=== PATIENT | male | born 1945 | race Caucasian/White ===

== ENCOUNTER → 2018-01-02 08:52 | Outpatient (CLI) | payer OTHER, MEDICARE, SELFPAY ==
[2018-01-02 12:32] LABS: Color, Urine Yellow (Yellow); Glucose, Dipstick Normal (Normal); Ketone-Dipstick Negative (Negative); Leukocyte Esterase-Dipstick Negative /ul (Negative); Nitrite-Dipstick Negative (Negative); Occult Blood-Urine Negative /ul (Negative); Protein-Dipstick Negative (Negative); Urine Bilirubin Dipstick Negative (Negative); Urine Clarity Clear (Clear); Urine Urobilinogen Normal (Normal)
[2018-01-02 12:33] LABS: Absolute Lymphocyte Count 1.25 X10^3/ul (0.83-4.51); Absolute Neutrophil Count 2.3 X10^3/uL (2.0-7.7); Basophil# 0.02 X10^3/uL; Basophil% 0.5 % (0-1); Eosinophil# 0.05 X10^3/uL; Eosinophils% 1.2 % (0-5); Hemoglobin 13.4 g/dl (13.0-16.5); Lymphocyte # 1.25 X10^3/ul; Lymphocyte % 30.6 % (19-41); Mean Corp Hgb Conc 30.5 g/gl (32-36); Mean Corpuscular Hgb 27.5 pg (27.0-32.0); Mean Corpuscular Volume 90.2 fL (80-94); Mean Platelet Vol. 10.8 fl (6.2-12.0); Monocyte# 0.45 X10^3/uL; Neutrophil # 2.31 X10^3/uL (2.7-7.7); Neutrophil % 56.7 % (47-70); Platelet Count 289 K/mm3 (150-450); RBC Distribution Width CV 12.7 % (11.6-14.6); RBC Distribution Width SD 41.2 fl (35.1-43.9); Red Blood Count 4.88 M/mm3 (4.6-6.2); White Blood Count 4.1 K/mm3 (4.4-11.0)
[2018-01-02 12:50] LABS: Vitamin D,25 Hydroxy 33.2 ng/mL (29.95-100.01)
[2018-01-02 12:56] LABS: COTININE Drug Screen Negative (<200 ng/mL)
[2018-01-02 13:09] LABS: ALB/GLOB Ratio 0.7 RATIO (0.9-2.4); AST(SGOT) 16 U/L (15-37); Alanine Aminotransfer ALT/SGPT 18 U/L (16-61); Albumin, Serum 3.2 g/dL (3.2-5.0); Alkaline Phosphatase 103 U/L (45-117); Anion Gap 7 (5-15); BUN 16 mg/dL (7-18); BUN/Creat Ratio 14.5 RATIO (10-20); Bilirubin, Direct 0.09 mg/dL (0.00-0.30); Calcium,Total 8.7 mg/dL (8.5-10.1); Chloride 103 mmol/L (98-107); Cholesterol 172 mg/dL (200); EST Glomerular Filtration Rate 70 mL/min (>60); Est Glom Filt Rate - Afr Amer 84 mL/min (>60); Globulin 4.9 g/dL (2.2-4.2); Glucose 83 mg/dL (74-106); High Density Lipoprotein 45 mg/dL; LDH 140 U/L (87-241); Potassium 4.3 mmol/L (3.5-5.1); Protein, Total 8.1 g/dL (6.4-8.2); Sodium Level 140 mmol/L (136-145); Triglycerides 74 mg/dL; Uric Acid 4.7 mg/dL (3.5-7.2); Very Low Density Lipoprotein 15 mg/dL (5-40)
[2018-01-05 16:09] LABS: PROEL- A/G Ratio 0.8 (0.7-1.7); PROEL- Albumin 3.4 g/dL (2.9-4.4); PROEL- Alpha-1 Globulin 0.2 g/dL (0.0-0.4); PROEL- Alpha-2 Globulin 0.7 g/dL (0.4-1.0); PROEL- Gamma Globulin 2.2 g/dL (0.4-1.8); PROEL- Globulin, Total 4.1 g/dL (2.2-3.9); PROEL- TOTAL PROTEIN 7.5 g/dL (6.0-8.5); PROELU- Albumin, Urine 16.3 % (.); PROELU- Alpha-1-Globulin,Ur 8.3 % (.); PROELU- Alpha-2-Globulin,Ur 21.5 % (.); PROELU- Gamma Globulin, Ur 23.8 % (.); Total Protein, Ur 11.6 mg/dL (Not Estab.)
== END ==
PROVIDERS: Family Provider Family Medicine; PCP Family Medicine; Visit Provider Family Medicine
DX: Z00.00 Encounter for general adult medical examination without abnormal findings (principal); Z12.5 Encounter for screening for malignant neoplasm of prostate; D89.2 Hypergammaglobulinemia, unspecified; E55.9 Vitamin D deficiency, unspecified
CPT/HCPCS: 80307; 82306; 82784; 84165; 84166; 86334

== ENCOUNTER → 2018-02-16 09:12 | Outpatient (CLI) | payer OTHER, MEDICARE, SELFPAY ==
[2018-02-16 09:28] LABS: Absolute Lymphocyte Count 1.48 X10^3/ul (0.83-4.51); Absolute Neutrophil Count 2.3 X10^3/uL (2.0-7.7); Basophil# 0.01 X10^3/uL; Basophil% 0.2 % (0-1); Eosinophil# 0.07 X10^3/uL; Eosinophils% 1.6 % (0-5); Hematocrit 44.2 % (40-54); Hemoglobin 13.9 g/dl (13.0-16.5); Lymphocyte # 1.48 X10^3/ul (4.0); Lymphocyte % 34.2 % (19-41); Mean Corp Hgb Conc 31.4 g/gl (32-36); Mean Corpuscular Hgb 27.6 pg (27.0-32.0); Mean Corpuscular Volume 87.7 fL (80-94); Mean Platelet Vol. 10.3 fl (6.2-12.0); Monocyte# 0.51 X10^3/uL; Monocyte% 11.8 % (0-10); Neutrophil # 2.25 X10^3/uL (2.7-7.7); POSITIVE COUNT NO; POSITIVE DIFFERENTIAL NO; POSITIVE MORPHOLOGY NO; Platelet Count 184 K/mm3 (150-450); RBC Distribution Width CV 13.7 % (11.6-14.6); RBC Distribution Width SD 43.6 fl (35.1-43.9); Red Blood Count 5.04 M/mm3 (4.6-6.2); White Blood Count 4.3 K/mm3 (4.4-11.0)
[2018-02-16 09:37] LABS: Prothrombin Time (Protime)PT. 13.5 SECONDS (11.7-14.9)
[2018-02-16 10:01] LABS: ALB/GLOB Ratio 0.8 RATIO (0.9-2.4); AST(SGOT) 13 U/L (15-37); Alanine Aminotransfer ALT/SGPT 14 U/L (16-61); Albumin, Serum 3.6 g/dL (3.2-5.0); Alkaline Phosphatase 84 U/L (45-117); Anion Gap 2 (5-15); BUN 15 mg/dL (7-18); BUN/Creat Ratio 12.4 RATIO (10-20); Chloride 106 mmol/L (98-107); Creatinine, Serum 1.21 mg/dL (0.70-1.30); EST Glomerular Filtration Rate 62 mL/min (>60); Est Glom Filt Rate - Afr Amer 75 mL/min (>60); Globulin 4.7 g/dL (2.2-4.2); Glucose 92 mg/dL (74-106); LDH 118 U/L (87-241); Potassium 4.7 mmol/L (3.5-5.1); Protein, Total 8.3 g/dL (6.4-8.2); Sodium Level 139 mmol/L (136-145)
[2018-02-18 06:08] LABS: HEPATITIS B SURFACE AG Negative (Negative); Hepatitis B Core AB IgM Negative (Negative); Hepatitis B Core Ab Total Negative (Negative); Hepatitis Be Ab Negative (Negative); Hepatitis Be Ag Negative (Negative); Hepatitis C Ab <0.1 s/co ratio (0.0-0.9)
[2018-02-18 11:28] LABS: Hep B Surface Antibodies Non Reactive (.); Viscosity, Serum 2.5 rel.saline (1.6-1.9)
== END ==
PROVIDERS: Family Provider Family Medicine; PCP Family Medicine; Visit Provider Internal Medicine Hematology & Oncology
DX: C88.0 Waldenstrom macroglobulinemia (principal)
CPT/HCPCS: 36415; 80053; 83615; 85025; 85610; 85810; 86704; 86705; 86706; 86707; 86803; 87340; 87350

== ENCOUNTER → 2018-02-20 09:26 | Outpatient (CLI) | payer OTHER, MEDICARE, SELFPAY ==
--- NOTE | 2018-02-20 | BMB_PTH ---
PATIENT: LARISA GE LOC: CT U#:[id number] AGE/SX: 80/M ROOM: RE02/20/[address]: Dr. Kayla Torrez MD : 1945 BED: DIS: SPEC #: [id number] RECD: 02/20/18 13:59 STATUS: DAMARIS RENicola #: [id number] LOCO: 02/20/18 00:[address]: Kayla Torrez DEPT: BONE MARROW RECD BY: Jeramie Barba ENTERED: 02/20/18 13:59 SP TYPE: BMB OTHR DR: Dr. Baldemar Dotson DO Tissues: A - Bone marrow, NOS B - Bone marrow, NOS C - Bone marrow, NOS Procedures: PERIPH Decalcification bone/plaque Bone Marrow Aspiration Special Stain Group II PAS Stain (control) Retic (control) Iron Stain (control) [place] Stain (control) Bone Marrow Core Biopsy Iron Stain Bone Marrow HEADER OPERATION: Bone marrow biopsy and aspiration PRE-OP DIAGNOSIS: IGM-K, MGUS, ? Waldenstr?m?s lymphoma TISSUE SUBMITTED: A - Core, B - Clot, C - Smears, and send outs (flow and cytogenetics) BONE MARROW DIAGNOSIS Right hip bone marrow core, clot and aspirate smears: Consistent with plasma cell dyscrasia with kappa monoclonality. Flow cytometry study from [facility] shows no significant diagnostic immunophenotypic abnormality. Complete report is viewable in patient?s EMR. See bone marrow study and comment. SJ:oxana 02/26/18 COMMENT Immunohistochemistry ([id number]) supports the above diagnosis. Plasma cell population comprise about 5-10% of total nucleated cell population. The bone marrow core and aspirate smears are limited in evaluation due to the presence of limited amount of bone marrow. Aspirate smears consist of only peripheral blood without any hematopoietic cells. Correlation with clinical, laboratory findings and appropriate follow up are necessary. This case has been review in consultation with Dr. Perry who concurs with the above diagnosis. BONE MARROW STUDY Slides are reviewed. CBC DATE: 02/20/18 WBC 4.3K; RBC 4.98; HGB 14.1; HCT 43.3; MCV 86.0; RDW 13.6; PLTS 187,000 SEGS 53.9%; LYMPHS 30.8%; MONOS 13.4%; EOS 1.4%; BASOS 0.5% PERIPHERAL SMEAR: Submitted. RBC: Normocytic and normochromic. WBC: Unremarkable. The WBC count is compatible to as reported above. PLTS: Adequate. BONE MARROW ASPIRATE DIFFERENTIAL: Not performed ASPIRATE FINDINGS: Site: Not specified Aspicular, acellular Comment: The smears predominantly consist of peripheral blood. Hematopoietic cells are not identified. CORE BIOPSY FINDINGS: Site: Not specified Adequacy: Limited Cellularity: 50% M/E ratio: Within normal limits. Megakaryocytes: Present and adequate in number. Bony trabeculae: Unremarkable. Granulomas: Absent. Lymphoid aggregate: Absent. Atypical infiltrate: present. Comment: Most of the specimen consists of cortical bone. A minute fragment of bone with hematopoietic marrow is noted. Immunohistochemistry ([id number]) shows mild increase of plasma cells. Plasma cell population comprise about 5-10% of total nucleated cell population. ASPIRATE CLOT FINDINGS: Site: Not specified Marrow particles: A few Cellularity: 50% M/E ratio: Within normal limits. Megakaryocytes: Present and adequate in number. Granulomas: Absent. Lymphoid aggregates: Absent. Atypical infiltrates: present. Comment: Most of the specimen consists of blood clots with a few fragments showing marrow particle. Immunohistochemistry ([id number]) shows mild increase of plasma cells with kappa monoclonality consistent with plasma cell dyscrasia. Plasma cell population comprise about 5-10% of total nucleated cell population. SPECIAL STAINS WITH MATCHED CONTROLS: Iron: Absent in core biopsy and clot section. The aspirate smears are insufficient for evaluation as they contain entirety of peripheral blood. Reticulin: No significant increase of reticulin fibers is noted. PAS: Highlights myeloid cells and megakaryocytes. BONE MARROW GROSS A - Received is a container labeled with the patient's name and designated bone marrow biopsy. The specimen consists of an elongated piece of camp bone measuring 0.3 cm in length and 0.1 cm in diameter. The specimen is totally submitted in one cassette after decalcification. B - Received labeled with the patient's name and not designated is a specimen that consists of two syringes of approximately 8 cc of bloody fluid that on filtration yields multiple minute fragments of blood clots measuring in aggregate 1.5 x 1.5 x 0.1 cm. The specimen is totally submitted in one cassette. C - Also received are 25 unstained and 1 peripheral stained slides. The unstained slides are submitted for appropriate staining. Also received is one green top tube which is sent to our reference lab for flow and cytogenetics. / SJ:rg 02/20/18 TC:5 CPT: 96123, 05446, 14387 x2, 48971 x3, 40934 ADDENDUM ADDENDUM ADDENDUM ADDENDUM ADDENDUM ADDENDUM ADDENDUM ADDENDUM 03/04/2018 10:07 ADDENDUM 03/04/2018 10:07 ADDENDUM 03/04/2018 10:07 ADDENDUM 03/04/2018 10:07 ADDENDUM 03/04/2018 10:07 CYTOGENETICS REPORT FROM [facility] CYTOGENETIC RESULT: 47,XY,+12[3]/46,XY[17] INTERPRETATION: CLL/SLL related clone detected Please see complete report in e-chart or EMR for further details
--- NOTE | 2018-02-20 | IMM_PTH ---
PATIENT: LARISA GE LOC: CT U#:[id number] AGE/SX: 80/M ROOM: RE02/20/[address]: Dr. Kayla Torrez MD : 1945 BED: DIS: SPEC #: [id number] RECD: 02/23/18 11:25 STATUS: DAMARIS REQ #: [id number] LOCO: 02/20/18 00:[address]: Kayla Torrez DEPT: IMMUNOHISTOCHEMISTRY RECD BY: Pratima Calixto ENTERED: 02/23/18 11:27 SP TYPE: IMMUNO OTHR DR: Dr. Baldemar Dotson DO Tissues: A - Bone marrow of iliac crest B - Bone marrow of iliac crest Procedures: BCL-6 (add) CD10 (add) CD138 (add) CD20 (add) CD23 (add) CD3 (add) CD5 (add) CD79A (add) CYCLIN (add) KAPPA (add) LAMBDA (add) CD45 (initial) PHYSICIAN & [address] [address] SPECIMEN INFORMATION: Tissue Source: A ? Bone marrow biopsy, core, B ? Bone marrow biopsy, clot Clinical Info: IGM-K, MGUS, ? Waldenstr?m?s lymphoma Specimen Number: [id number] A & B CPT code: 14902 x2, 66715 x14 METHODOLOGY: Deparaffinized sections of prefer/formalin-fixed tissue or PAP/DQ stained slides are incubated with monoclonal/polyclonal antibodies/oligonucleotide probes. Localization is made via biotin free immunoperoxidase method. Appropriate controls are performed and reacted as expected. Results on target cell population are indicated in the following table: RESULTS: ANTIBODY / CLONE RESULT Block A CD45 (RP2/18) positive CD138 (B-A38) positive [place] (polyclonal) negative Lambda (polyclonal) negative Block B CD45 (RP2/18) positive CD138 (B-A38) positive [place] (polyclonal) positive Lambda (polyclonal) negative CD3 (PS1) positive CD5 (SP10) positive CD20 (L26) positive CD79a (11E3) positive CD23 (1B12) negative [place] D1/BCL-1 (SP4) negative CD10 (56C6) negative BCL-6 (VY567C/A8) negative These tests were developed and their performance characteristics determined by [facility]. They may not have been cleared or approved by the U.S. Food and Drug Administration. The FDA has determined that such clearance or approval is not necessary. INTERPRETATION: A. Bone marrow biopsy, core: Mild increase of plasma cells is noted. B. Bone marrow biopsy, clot: Mild increase of plasma cells noted with kappa monoclonality. Lymphocytes are polytypic in nature. SJ:oxana 02/26/18 Case has been reviewed in consultation with Dr. Perry who concurs with the above diagnosis. IDC:AM
--- NOTE | 2018-02-20 09:29 | CT_ITS ---
PROCEDURE: CT-GUIDED CORE BONE BIOPSY OF THE LEFT ILIAC BONE WITH BONE MARROW ASPIRATION. Individualized dose optimization techniques were used for this CT. INDICATION: Male, 72 years old. Low blood count. CT guidance RADIATION DOSAGE (If Supplied By Facility): CTDIvol = ( ) mGy, DLP = ( ) mGycm CONSENT: The risks, benefits and alternatives to the procedure were explained to the patient, and the patient agreed to the procedure and signed the consent. SEDATION: Intermittent the intravenous and demonstration of Versed and fentanyl by nursing staff under continuous cardiopulmonary monitoring. Sedation less than approximately 30 minutes STERILE BARRIER TECHNIQUE: The following sterile barrier precautions were used during the procedure: hand hygiene; use of 2% chlorhexidine aseptic; use of a cap, mask, sterile gown, sterile gloves, sterile full body drape, and a large sterile sheet. PROCEDURE/TECHNIQUE: The risks, benefits, and alternatives to the procedure were explained to patient, and the patient agreed to the procedure and signed a consent form for the procedure. A timeout was performed to confirm the patient's identity, the type of procedure, to be performed and the site of entry. Patient was positioned right lateral decubitus on the CT scan table. Under CT guidance using sterile technique and after infiltration of the skin and subcutaneous soft tissues with 40 mL of lidocaine 1% a 10-gauge bone introducer device was advanced to the posterior lateral cortex of the of the iliac bone, a bone window is created then an 11-gauge core biopsy was introduced 2 core samples were obtained under CT guidance. An aspiration of the bone marrow was performed using 5 cc and 10 cc syringes. The samples were handled by lab personnel. FINDINGS: Successful CT-guided core biopsy of the iliac bone with bone marrow aspiration. CT/Biopsy/Inj or Needle Placement IMPRESSION: Successful CT-guided core biopsy of the iliac bone with bone marrow aspiration. Electronically Signed: Dejan Carlisle MD at 11:56 EDT Tel , Service support ,
[2018-02-20 09:39] VITALS: BP 165/74; PULSE 65; RESP 16; TEMP 37.2; O2SAT 98; BMI 61.7
[2018-02-20 10:18] LABS: Absolute Lymphocyte Count 1.31 X10^3/ul (0.83-4.51); Absolute Neutrophil Count 2.3 X10^3/uL (2.0-7.7); Basophil# 0.02 X10^3/uL; Basophil% 0.5 % (0-1); Eosinophil# 0.06 X10^3/uL; Eosinophils% 1.4 % (0-5); Hematocrit 43.3 % (40-54); Hemoglobin 14.1 g/dl (13.0-16.5); Lymphocyte # 1.31 X10^3/ul (4.0); Lymphocyte % 30.8 % (19-41); Mean Corp Hgb Conc 32.6 g/gl (32-36); Mean Corpuscular Hgb 28.3 pg (27.0-32.0); Mean Corpuscular Volume 86.9 fL (80-94); Mean Platelet Vol. 10.6 fl (6.2-12.0); Monocyte# 0.57 X10^3/uL; Monocyte% 13.4 % (0-10); Neutrophil # 2.29 X10^3/uL (2.7-7.7); Neutrophil % 53.9 % (47-70); Platelet Count 187 K/mm3 (150-450); RBC Distribution Width CV 13.6 % (11.6-14.6); RBC Distribution Width SD 43.3 fl (35.1-43.9); Red Blood Count 4.98 M/mm3 (4.6-6.2); White Blood Count 4.3 K/mm3 (4.4-11.0)
[2018-02-20 10:20] LABS: POSITIVE COUNT NO; POSITIVE DIFFERENTIAL NO; POSITIVE MORPHOLOGY NO
[2018-02-20 11:33] VITALS: BP 168/84; PULSE 68; RESP 14; O2SAT 96
== END ==
PROVIDERS: Family Provider Family Medicine; PCP Family Medicine; Visit Provider Internal Medicine Hematology & Oncology
DX: C88.0 Waldenstrom macroglobulinemia (principal)
CPT/HCPCS: 38221; 36415; 77012; 85025; 88305; 88311; 88313; 88341; 88342

== ENCOUNTER → 2018-07-31 09:59 | Outpatient (CLI) | payer OTHER, MEDICARE, SELFPAY ==
[2018-07-31 16:02] LABS: PSA,Total - Annual Screen 0.91 ng/mL (0.00-4.00)
== END ==
PROVIDERS: Family Provider Family Medicine; PCP Family Medicine; Visit Provider Family Medicine
DX: Z12.5 Encounter for screening for malignant neoplasm of prostate (principal)
CPT/HCPCS: 36415; 84153; G0103

== ENCOUNTER → 2019-04-28 15:11 | Outpatient (CLI) | payer OTHER, MEDICARE, SELFPAY ==
[2019-03-01 11:05] VITALS: BMI 31.0
--- NOTE | 2019-04-28 16:07 | RAD_ITS ---
STUDY: X-RAY - RIGHT FOOT CLINICAL: Male, 74 years old. Heel pain. TECHNIQUE: view(s) of the foot. COMPARISON: None. FINDINGS: Normal talus, calcaneus, and tarsal bones. Minimal arthrosis of the visualized subtalar, talonavicular, calcaneocuboid, tarsal and tarsometatarsal articulations. Normal metatarsi. There is degenerative arthrosis of the metatarsophalangeal joint of the hallux . Normal tibial and fibular sesamoid bones. Normal interphalangeal joint of the great toe. Normal phalanges of the great toe. Normal second through fifth metatarsophalangeal joints. Normal interphalangeal joints and phalanges of the lesser toes. The soft tissue structures are unremarkable. RAD/Foot min 3 Views IMPRESSION: Mild degenerative changes of the foot. The calcaneus appears grossly normal. Electronically Signed: Moiz Pichardo DO at 19:41 EDT Tel [phone], Service support ,
--- NOTE | 2019-04-28 16:07 | RAD_ITS ---
STUDY: X-RAY - RIGHT CALCANEUS REASON FOR EXAM: Male, 74 years old. Heel pain. TECHNIQUE: 2 view(s) of the calcaneus were obtained. COMPARISON: None. FINDINGS: There is no acute fracture, dislocation or destructive osseous pathology. There is enthesophyte formation of the posterior superior calcaneus at the site of insertion of the Achilles tendon. There is a plantar calcaneal spur. Normal subtalar articulations. The soft tissues are grossly normal. RAD/Calcaneus min 2 Views IMPRESSION: No acute abnormality of the right calcaneus. Electronically Signed: Moiz Pichardo DO at 19:43 EDT Tel [phone], Service support ,
== END ==
PROVIDERS: Family Provider Family Medicine; PCP Family Medicine; Referring Provider Podiatrist; Visit Provider Podiatrist
DX: M79.671 Pain in right foot (principal)
CPT/HCPCS: 73630; 73650

== ENCOUNTER → 2019-08-30 07:21 | Outpatient (CLI) | payer OTHER, MEDICARE, SELFPAY ==
[2019-03-01 11:05] VITALS: BMI 31.0
[2019-08-30 08:30] LABS: Absolute Lymphocyte Count 1.39 X10^3/uL (0.83-4.51); Absolute Neutrophil Count 2.1 X10^3/uL (2.0-7.7); Basophil# 0.03 X10^3/uL; Basophil% 0.7 % (0-1); Eosinophil# 0.09 X10^3/uL; Eosinophils% 2.2 % (0-5); Hematocrit 42.5 % (40-54); Hemoglobin 13.6 g/dL (13.0-16.5); Lymphocyte # 1.39 X10^3/ul (4.0); Lymphocyte % 34.2 % (19-41); Mean Corpuscular Hgb 28.8 pg (27.0-32.0); Mean Platelet Vol. 10.9 fl (6.2-12.0); Monocyte# 0.51 X10^3/uL; Monocyte% 12.5 % (0-10); NRBC Flagged by Analyzer 0 % (0-5); Neutrophil # 2.05 X10^3/uL (2.7-7.7); Neutrophil % 50.4 % (47-70); Platelet Count 172 K/mm3 (150-450); RBC Distribution Width CV 12.1 % (11.6-14.6); RBC Distribution Width SD 40.4 fl (35.1-43.9); Red Blood Count 4.72 M/mm3 (4.6-6.2); White Blood Count 4.1 K/mm3 (4.4-11.0)
[2019-08-30 08:58] LABS: ALB/GLOB Ratio 0.8 RATIO (0.9-2.4); AST(SGOT) 13 U/L (15-37); Alanine Aminotransfer ALT/SGPT 14 U/L (16-61); Albumin, Serum 3.5 g/dL (3.2-5.0); Alkaline Phosphatase 86 U/L (45-117); Anion Gap 6 (5-15); BUN 19 mg/dL (7-18); Calcium,Total 8.6 mg/dL (8.5-10.1); Chloride 104 mmol/L (98-107); Creatinine, Serum 1.12 mg/dL (0.70-1.30); EST Glomerular Filtration Rate 68 mL/min (>60); Est Glom Filt Rate - Afr Amer 82 mL/min (>60); Globulin 4.5 g/dL (2.2-4.2); Glucose 90 mg/dL (74-106); LDH 134 U/L (87-241); Potassium 4.1 mmol/L (3.5-5.1); Sodium Level 139 mmol/L (136-145)
[2019-08-30 15:31] LABS: Xtra Tube EP Lab EXTRA TUBE
[2019-08-31 16:07] LABS: Albumin 3.3 g/dL (2.9-4.4); Alpha-1-Globulins 0.2 g/dL (0.0-0.4); Alpha-2-Globulins 0.7 g/dL (0.4-1.0); Free Kappa Light Chains 26.2 mg/L (3.3-19.4); Free Lambda Light Chains 7.5 mg/L (5.7-26.3); Gamma Globulin 2.4 g/dL (0.4-1.8); Immunoglobulin G 775 mg/dL (700-1600); PROEL- TOTAL PROTEIN 7.5 g/dL (6.0-8.5)
[2019-09-01 11:42] LABS: Immunoglobulin A 32 mg/dL (61-437); Immunoglobulin M 2178 mg/dL (15-143)
== END ==
PROVIDERS: Family Provider Family Medicine; PCP Family Medicine; Referring Provider Internal Medicine Hematology & Oncology; Visit Provider Internal Medicine Hematology & Oncology
DX: C88.0 Waldenstrom macroglobulinemia (principal); D47.2 Monoclonal gammopathy
CPT/HCPCS: 36415; 80053; 82784; 83615; 83883; 84165; 85025; 86334

== ENCOUNTER → 2019-12-03 08:53 | Outpatient (CLI) | payer OTHER, MEDICARE, SELFPAY ==
[2019-09-06 10:39] VITALS: BMI 29.9
[2019-12-03 13:42] LABS: Cholesterol 203 mg/dL (200); High Density Lipoprotein 42 mg/dL; PSA,Total - Annual Screen 0.93 ng/mL (0.00-4.00); Triglycerides 123 mg/dL; Very Low Density Lipoprotein 25 mg/dL (5-40)
== END ==
PROVIDERS: PCP Family Medicine; Visit Provider Family Medicine
DX: E78.5 Hyperlipidemia, unspecified (principal); E55.9 Vitamin D deficiency, unspecified; Z12.5 Encounter for screening for malignant neoplasm of prostate
CPT/HCPCS: 36415; 80061; 82306; 84153; G0103

== ENCOUNTER → 2020-02-28 08:33 | Outpatient (CLI) | payer OTHER, MEDICARE, SELFPAY ==
[2019-09-06 10:39] VITALS: BMI 29.9
[2020-02-28 09:20] LABS: Basophil# 0.02 X10^3/uL; Basophil% 0.5 % (0-1); Eosinophils% 2.3 % (0-5); Hemoglobin 13.6 g/dL (13.0-16.5); Lymphocyte % 37.5 % (19-41); Mean Corp Hgb Conc 30.9 g/dL (32-36); Mean Corpuscular Volume 90.7 fL (80-94); Mean Platelet Vol. 10.7 fl (6.2-12.0); Monocyte# 0.57 X10^3/uL; Monocyte% 13.3 % (0-10); NRBC Flagged by Analyzer 0 % (0-5); Neutrophil # 1.97 X10^3/uL (2.7-7.7); Neutrophil % 46.2 % (47-70); Platelet Count 181 K/mm3 (150-450); RBC Distribution Width SD 39.8 fl (35.1-43.9); Red Blood Count 4.85 M/mm3 (4.6-6.2); White Blood Count 4.3 K/mm3 (4.4-11.0)
[2020-02-28 09:56] LABS: ALB/GLOB Ratio 0.7 RATIO (0.9-2.4); AST(SGOT) 16 U/L (15-37); Alanine Aminotransfer ALT/SGPT 15 U/L (16-61); Albumin, Serum 3.5 g/dL (3.2-5.0); Alkaline Phosphatase 90 U/L (45-117); Anion Gap 5 (5-15); BUN 24 mg/dL (7-18); BUN/Creat Ratio 20.3 RATIO (10-20); Calcium,Total 8.6 mg/dL (8.5-10.1); Chloride 106 mmol/L (98-107); Creatinine, Serum 1.18 mg/dL (0.70-1.30); EST Glomerular Filtration Rate 64 mL/min (>60); Est Glom Filt Rate - Afr Amer 77 mL/min (>60); Globulin 4.8 g/dL (2.2-4.2); Glucose 93 mg/dL (74-106); LDH 130 U/L (87-241); Potassium 4.5 mmol/L (3.5-5.1); Protein, Total 8.3 g/dL (6.4-8.2); Sodium Level 140 mmol/L (136-145)
[2020-02-28 16:37] LABS: Xtra Tube EP Lab EXTRA TUBE
[2020-02-29 16:08] LABS: Albumin 3.5 g/dL (2.9-4.4); Alpha-1-Globulins 0.2 g/dL (0.0-0.4); Alpha-2-Globulins 0.6 g/dL (0.4-1.0); Free Kappa Light Chains 22.1 mg/L (3.3-19.4); Free Lambda Light Chains 5.5 mg/L (5.7-26.3); Gamma Globulin 2.5 g/dL (0.4-1.8); Immunoglobulin G 747 mg/dL (603-1613); PROEL- TOTAL PROTEIN 7.8 g/dL (6.0-8.5)
[2020-02-29 19:54] LABS: Immunoglobulin A 33 mg/dL (61-437); Immunoglobulin M 2524 mg/dL (15-143)
== END ==
PROVIDERS: PCP Family Medicine; Referring Provider Internal Medicine Hematology & Oncology; Visit Provider Internal Medicine Hematology & Oncology
DX: C88.0 Waldenstrom macroglobulinemia (principal); D47.2 Monoclonal gammopathy
CPT/HCPCS: 36415; 80053; 82784; 83615; 83883; 84165; 85025; 86334

== ENCOUNTER 2020-03-20 08:05 | Day surgery (SDC) | payer OTHER, MEDICARE, SELFPAY ==
[2020-03-10 09:07] VITALS: BMI 30.2
--- NOTE | 2020-03-10 09:11 | HP_ITS ---
Intake Vital Signs 03/10/20 BMI 30.2 03/10/20 Height 5 ft 10 in 03/10/20 Weight: 205 lb 03/10/20 BMI 29.4 03/10/20 BP 154/67 H 03/10/20 Blood Pressure Location Rt brachial 03/10/20 Position Sitting 03/10/20 Respiration 18 Intake Visit Reasons: Gastroesophageal reflux disease (GERD) Chief Complaint: MGUS follow-up Vacuum Bottle [employer]er Required: No Is patient in pain?: No Allergies No Known Allergies Allergy (Verified 03/10/20 09:07) Medications Calcium Carbonate/Vitamin D3 [Caltrate 600 Plus D3 Tablet] 1 tab PO DAILY 09/09/18 [History Confirmed 03/10/20] Collagen Types 1,2 &3 60 mg PO DAILY 09/09/18 [History Confirmed 03/10/20] Folic Acid/Vit B Complex and C [Eql Super B Complex Tablet] 800 mcg PO DAILY 09/09/18 [History Confirmed 03/10/20] Ginkgo Biloba 120 mg PO DAILY 09/09/18 [History Confirmed 03/10/20] Glucosamn/[place]/C/Mn/[place] [[facility]vs Glucosamine [place] Cplt] 1 ea PO DAILY 09/09/18 [History Confirmed 03/10/20] Multivitamin [Multiple Vitamins] 1 tab PO DAILY 09/09/18 [History Confirmed 03/10/20] [place]-3 Fatty Acids/Fish Oil [[place] 3 1,000 mg Softgel] 650 mg PO DAILY 09/09/18 [History Confirmed 03/10/20] Polypodium 240 mg PO DAILY 09/09/18 [History Confirmed 03/10/20] Tumeric Curcumin 500 mg PO DAILY 09/09/18 [History Confirmed 03/10/20] Ubidecarenone [Coenzyme Q10] 100 mg PO DAILY 09/09/18 [History Confirmed 03/10/20] Zinc 50 mg PO DAILY 09/09/18 [History Confirmed 03/10/20] [facility] Medical History Cataract, left eye (Acute) Hyperlipidemia (Acute) Leukopenia (Acute) Osteopenia (Acute) Vitamin D deficiency (Acute) Surgical History History of facial surgery (Acute) History of right cataract surgery (Acute) History of total right hip replacement (Acute) Family History Brother Prostate cancer Mother Lung cancer Father Colon cancer Daughter Thyroid cancer Social History (Updated 03/10/20 @ 09:[address] Bj Morfin MD) Smoking Status: Former smoker alcohol intake: never substance use type: does not use what type of physical activity do you participate in: walking, weight training frequency: 1-2 times per week HPI HPI Surgical H&P: Yes HPI: LARISA GE, is a 74 M who presents to the office today for Evaluation for heartburn. Patient has had intermittent heartburn over the past year he will go from 2-3 nights in a row and then be quiesced sent for a period of time he has been taking [place] which has relieved the heartburn. He has no waterbrash symptoms he has no nausea or vomiting. He has never had an upper scope. He has had normal colonoscopies ROS General General: No weight change, appetite, fatigue, colon cancer, breast cancer or weakness HEENT HEENT: No difficulty swallowing, eye injury, eye surgery, swollen glands or hoarseness Endo Endocrine: No thyroid disease, diabetes mellitus, thyroid cancer, Hair loss, heat intolerance or cold intolerance Skin Skin: No rash or changing moles Breast Breast: No left breast lump, right breast lump, nipple discharge, breast pain, abnormal mammogram, abnormal US or breast enlargement Musc Musculoskeletal: No back problems, arthritis, rheumatoid arthritis, gout or joint pain Cardio Cardiovascular: No murmur, pacemaker, heart disease, atrial fibrillation, high blood pressure, heart attack, heart stent, palpitations, shortness of breat with exertion or chest pain Psych Psychiatric: No depression, anxiety or hearing voices Resp Respiratory: No shortness of breath, No sleep apnea, No cough, No COPD, No asthma, No emphysema, No wheezing Gastro Gastrointestinal: No abdominal pain, No nausea or vomiting, No diarrhea, No constipation, No blood in stool, Yes acid reflux, No hemorrhoids, No ulcers, No gallbladder problem, No black,tarry stools Eduard Hematologic: No blood thinners, No blood disorders, No bleeding, No anemia, No blood clots Neuro Neurologic: No system reviewed and no additional complaints, except as docu, No as per HPI, No abnormal walking, No abnormal hearing, No abnormal movements, No abnormal speech, No behavioral changes, No burning sensations, No confusion, No seizure-like activity, No unsteadiness, No dizziness, No localized weakness, No frequent falls, No headache(s), No lack of coordination, No loss of vision, No memory loss, No numbness, No other visual disturbances, No radiating pain, No restless legs, No sensory deficit, No fainting, No tingling, No tremor(s), No weakness, No other Exam Const General: no acute distress, well developed, well hydrated Orientation: oriented to person, oriented to place, oriented to time [facility] Head: normocephalic, atraumatic Ears: external ears normal Mouth: moist mucous membranes Eyes Sclera: sclerae normal Pupils: normal by confrontation Neck Neck: no lymphadenopathy noted Neck mass: No Thyroid: thyroid normal, symmetrical Chest Chest palpation & inspection: normal inspection of the chest Breast Palpation: No nipple discharge Resp Effort & Inspection: normal respiratory effort Auscultation: clear to auscultation bilaterally Percussion: percussion normal Cardio Rate: regular rate Rhythm: regular rhythm Heart Sounds: no murmurs GI Palpation: soft, no hepatosplenomegaly, no masses, nontender Rectal Exam: other Other: Rectal exam deferred. Extrem General: normal to inspection, no clubbing, cyanosis or edema Assessment & Plan 1. Gastroesophageal reflux disease, esophagitis presence not specified K21.9 Plan I have discussed the above with the patient. I have offered the patient esophagogastroduodenoscopy for evaluation. I have explained the risks/benefits of the procedure and described the procedure. I have discussed the risks with the patient, including but not limited to: infection, bleeding, perforation of the GI tract requiring emergency surgery, inability to complete the procedure, injury to any internal organs, complications of anesthesia, etc. - the patient understands and agrees to proceed. I have answered all the patient's questions to the patient's satisfaction and the patient has no further questions. The patient has been given instructions for the colon cleansing preparation. Plan Detail Goals Decrease pain and spasm Improve ROM Barriers Prolonged driving Coding Level of Care Code Off vis,new,level 3 Diagnoses Gastroesophageal reflux disease, esophagitis presence not specified K21.9 ??Esophagitis presence: esophagitis presence not specified 03/10/20911 <Electronically signed by Bj kenney MD> Date _ Bj Morfin MD I have re-examined the patient. There are no clinical changes since date of exam.
[2020-03-20] VITALS (8 sets, daily range): BP systolic 121–142; BP diastolic 61–76; PULSE 56–63; RESP 16; TEMP 36.3–37.1; O2SAT 97–100; BMI 30.6
--- NOTE | 2020-03-20 | GASB_PTH ---
PATIENT: LARISA GE LOC: EN U#:[id number] AGE/SX: 75/M ROOM: RE03/20/[address]: Dr. Bj Morfin MD : 1945 BED: DIS: 03/20/2020 SPEC #: [id number] RECD: 03/20/20 12:16 STATUS: DAMARIS MARY #: [id number] LOCO: 03/20/20 00:[address]: Bj Morfin DEPT: SURGICAL PATHOLOGY RECD BY: Jeramie Barba ENTERED: 03/20/20 12:17 SP TYPE: Gastric Bx OTHR DR: Dr. Baldemar Dotson, DO Tissues: Gastric mucous membrane Procedures: Surgery Specimen Level IV HEADER OPERATION: EGD ([facility] [place]) PRE-OP DIAGNOSIS: GERD TISSUE SUBMITTED: Antrum biopsy for histo and H. pylori MICROSCOPIC DIAGNOSIS Gastric antrum, biopsy: Chronic gastritis. See comment. AM:oxana 03/21/20 COMMENT The results of immunohistochemistry for Helicobacter pylori will be reported separately ([id number]). MICROSCOPIC DESCRIPTION Slides are reviewed. GROSS DESCRIPTION Received in fixative is one container labeled with the patient's name and designated antrum biopsy. The specimen consists of one irregular fragment of light camp soft tissue that measures 0.7 x 0.3 x 0.1 cm. The specimen is totally submitted in one cassette. / AM:oxana 03/20/20 TC:3 CPT: 24706
[2020-03-20] MEDS: Lactated Ringers 1,000 ML 100 ML IV (08:45)
--- NOTE | 2020-03-20 09:45 | IMM_PTH ---
PATIENT: LARISA GE LOC: EN U#:[id number] AGE/SX: 75/M ROOM: RE03/20/[address]: Dr. Bj Morfin MD : 1945 BED: DIS: 03/20/2020 SPEC #: [id number] RECD: 03/20/20 12:48 STATUS: DAMARIS RENicola #: [id number] LOCO: 03/20/20 09:[address]: Bj Morfin DEPT: IMMUNOHISTOCHEMISTRY RECD BY: Pratima Calixto ENTERED: 03/20/20 12:48 SP TYPE: IMMUNO OTHR DR: Dr. Baldemar Dotson DO Tissues: Stomach, NOS Procedures: H Pylori (initial) PHYSICIAN & INSTITUTION [place] [phone] SPECIMEN INFORMATION: Tissue Source: Antrum biopsy Clinical Info: GERD Specimen Number: [id number] CPT code: 34429 METHODOLOGY: Deparaffinized sections of prefer/formalin-fixed tissue or PAP/DQ stained slides are incubated with monoclonal/polyclonal antibodies/oligonucleotide probes. Localization is made via biotin free immunoperoxidase method. Appropriate controls are performed and reacted as expected. Results on target cell population are indicated in the following table: RESULTS: ANTIBODY / CLONE RESULT H Pylori (polyclonal) negative These tests were developed and their performance characteristics determined by [facility]. They may not have been cleared or approved by the U.S. Food and Drug Administration. The FDA has determined that such clearance or approval is not necessary. INTERPRETATION: Antrum, biopsy: Negative for Helicobacter pylori organisms. AM:oxana 03/22/20
--- NOTE | 2020-03-20 09:56 | OP.EGD_ITS ---
Patient Name: Blake Lemons Procedure Date: 03/20/2020 9:39 AM Date of : 1945 Age: 75 Procedure: Upper GI endoscopy Indications: Heartburn, Gastro-esophageal reflux disease Providers: Bj Morfin MD Referring MD: Baldemar Dotson Medicines: See the Anesthesia note for documentation of the administered medications Patient Profile: This is a 75 year old male. Refer to note in patient chart for documentation of history and physical. Complications: No immediate complications. Procedure: Pre-Anesthesia Assessment: - Prior to the procedure, a History and Physical was performed, and patient medications and allergies were reviewed. The patient's tolerance of previous anesthesia was also reviewed. The risks and benefits of the procedure and the sedation options and risks were discussed with the patient. All questions were answered, and informed consent was obtained. Prior Anticoagulants: The patient has taken no previous anticoagulant or antiplatelet agents. ASA Grade Assessment: II - A patient with mild systemic disease. After reviewing the risks and benefits, the patient was deemed in satisfactory condition to undergo the procedure. After obtaining informed consent, the endoscope was passed under direct vision. Throughout the procedure, the patient's blood pressure, pulse, and oxygen saturations were monitored continuously. The gastroscope was introduced through the mouth, and advanced to the second part of duodenum. The upper GI endoscopy was accomplished without difficulty. The patient tolerated the procedure well. Scope In: 9:49:01 AM Scope Out: 9:52:13 AM Total Procedure Duration Time 0 hours 3 minutes 12 seconds Findings: A small hiatal hernia was present. No biopsies or other specimens were collected for this exam. Localized mild inflammation characterized by erythema was found in the prepyloric region of the stomach. Biopsies were taken with a cold forceps for Helicobacter pylori testing. The examined duodenum was normal. No biopsies or other specimens were collected for this exam. Impression: - Small hiatal hernia. No specimens collected. - Gastritis. Biopsied. - Normal examined duodenum. No specimens collected. Recommendation: - Discharge patient to home. - Resume previous diet. - Continue present medications. - Await pathology results. - Repeat upper endoscopy (date not yet determined) for surveillance. - Return to my office in 3 weeks. Procedure Code(s): --- Professional --- 97269, Esophagogastroduodenoscopy, flexible, transoral; with biopsy, single or multiple Diagnosis Code(s): --- Professional --- K44.9, Diaphragmatic hernia without obstruction or gangrene K29.70, Gastritis, unspecified, without bleeding R12, Heartburn K21.9, Gastro-esophageal reflux disease without esophagitis CPT copyright 2017 [employer]. All rights reserved. The codes documented in this report are preliminary and upon content curator review may be revised to meet current compliance requirements. MD Bj Hart MD 03/20/2020 9:56:28 AM This report has been signed electronically. Number of Addenda: 0 Note Initiated On: 03/20/2020 9:39 AM
--- NOTE | 2020-03-20 09:56 | OP.CCLET_ITS ---
03/20/2020 Baldemar Dotson [address] [place] [address] Re : Upper GI endoscopy procedure for Blake Lemons Dear Dr. Dotson This procedure was performed on Friday, March 20, 2020. My impressions and recommendations are as follows: Impressions : - Small hiatal hernia. No specimens collected. - Gastritis. Biopsied. - Normal examined duodenum. No specimens collected. Recommendations : - Discharge patient to home. - Resume previous diet. - Continue present medications. - Await pathology results. - Repeat upper endoscopy (date not yet determined) for surveillance. - Return to my office in 3 weeks. My findings are described in the full procedure note, which is enclosed. If I can be of further assistance, please feel free to contact me at Doctor phone number(s): , Fax: [phone], Work: . Sincerely, MD Bj Hart MD 03/20/2020 9:56:28 AM This report has been signed electronically.
== END 2020-03-20 10:40 | disposition home or self-care (01) ==
LOC: EN 08:06 → AC 08:07
PROVIDERS: PCP Family Medicine; Referring Provider Family Medicine; Visit Provider Surgery
PROC: 0DJ08ZZ Inspection of Upper Intestinal Tract, Via Natural or Artificial Opening Endoscopic (ICD-10-PCS; CPT 43235; principal; 2020-03-20 09:40)
DX: K29.50 Unspecified chronic gastritis without bleeding (principal); K44.9 Diaphragmatic hernia without obstruction or gangrene; K21.9 Gastro-esophageal reflux disease without esophagitis; E78.5 Hyperlipidemia, unspecified; E55.9 Vitamin D deficiency, unspecified; Z87.891 Personal history of nicotine dependence; Z11.59 Encounter for screening for other viral diseases
CPT/HCPCS: 43239; 87635; 88305; 88342; G2023; J7120; J2405; U0004

== ENCOUNTER → 2020-08-15 07:34 | Outpatient (CLI) | payer OTHER, MEDICARE, SELFPAY ==
[2020-03-20 08:39] VITALS: BMI 30.6
[2020-08-15 08:08] LABS: Absolute Lymphocyte Count 1.68 X10^3/uL (0.83-4.51); Absolute Neutrophil Count 2.2 X10^3/uL (2.0-7.7); Basophil# 0.03 X10^3/uL; Basophil% 0.7 % (0-1); Eosinophil# 0.12 X10^3/uL; Eosinophils% 2.6 % (0-5); Hematocrit 42.5 % (40-54); Lymphocyte # 1.68 X10^3/ul (4.0); Lymphocyte % 36.9 % (19-41); Mean Corp Hgb Conc 30.6 g/dL (32-36); Mean Corpuscular Hgb 27.5 pg (27.0-32.0); Mean Platelet Vol. 10.1 fl (6.2-12.0); Monocyte# 0.56 X10^3/uL; Monocyte% 12.3 % (0-10); NRBC Flagged by Analyzer 0 % (0-5); Neutrophil # 2.15 X10^3/uL (2.7-7.7); Neutrophil % 47.3 % (47-70); Platelet Count 166 K/mm3 (150-450); RBC Distribution Width CV 11.9 % (11.6-14.6); RBC Distribution Width SD 39.6 fl (35.1-43.9); Red Blood Count 4.72 M/mm3 (4.6-6.2); White Blood Count 4.6 K/mm3 (4.4-11.0)
[2020-08-15 08:19] LABS: Erythrocyte Sedimentation Rate 51 mm/hr (0-20)
[2020-08-15 08:25] LABS: CRP < 2.90 mg/L (0.0-3.0)
== END ==
PROVIDERS: PCP Family Medicine; Referring Provider Registered Nurse; Visit Provider Registered Nurse
DX: M25.551 Pain in right hip (principal); Z96.641 Presence of right artificial hip joint
CPT/HCPCS: 36415; 85025; 85652; 86140

== ENCOUNTER → 2020-08-28 08:07 | Outpatient (CLI) | payer OTHER, MEDICARE, SELFPAY ==
[2020-03-20 08:39] VITALS: BMI 30.6
--- NOTE | 2020-08-28 08:08 | RAD_ITS ---
PROCEDURE: Fluoroscopic guided right hip aspiration. DATE: 08/28/2020. INDICATION: Male, 75 years old. Chronic pain. Status post right hip replacement. PHYSICIAN: Lorne Maloney M.D. ACCESS SITE: Right hip. NEEDLE: 22-gauge spinal needle. FLUOROSCOPY TIME (if supplied): (0:26) minutes/seconds. One image was obtained. FINDINGS: The risks, benefits, and alternatives to the procedure were explained to the patient. The specific risks of bleeding, infection, and neurovascular injury were detailed and accepted. Witnessed informed consent was obtained. A 22-gauge spinal needle was positioned under radiographic fluoroscopic localization. Approximately 2 cc of ISOVUE-300 instilled for localization purposes. No aspirate was obtained. The patient tolerated the procedure well without any immediate complications. RAD/Inj/Asp Avel Jt Should/Hip/Knee IMPRESSION: 1. Successful fluoroscopic guided right hip aspiration. Electronically Signed: Lorne Maloney, at 8:50 EST , Service support ,
== END ==
PROVIDERS: PCP Family Medicine; Referring Provider Registered Nurse; Visit Provider Registered Nurse
DX: M25.551 Pain in right hip (principal); Z96.641 Presence of right artificial hip joint
CPT/HCPCS: 20610; 77002

== ENCOUNTER → 2021-02-26 08:12 | Outpatient (CLI) | payer OTHER, MEDICARE, SELFPAY ==
[2020-09-04 13:02] VITALS: BMI 30.3
[2021-02-26 09:01] LABS: Absolute Lymphocyte Count 1.65 X10^3/uL (0.83-4.51); Absolute Neutrophil Count 2.2 X10^3/uL (2.0-7.7); Basophil# 0.02 X10^3/uL; Basophil% 0.4 % (0-1); Eosinophils% 2.2 % (0-5); Hematocrit 43.4 % (40-54); Hemoglobin 13.5 g/dL (13.0-16.5); Lymphocyte # 1.65 X10^3/ul (0.83-4.51); Lymphocyte % 36.3 % (19-41); Mean Corp Hgb Conc 31.1 g/dL (32-36); Mean Corpuscular Hgb 28.2 pg (27.0-32.0); Mean Corpuscular Volume 90.8 fL (80-94); Mean Platelet Vol. 10.6 fl (6.2-12.0); Monocyte# 0.56 X10^3/uL; Monocyte% 12.3 % (0-10); NRBC Flagged by Analyzer 0 % (0-5); Neutrophil # 2.19 X10^3/uL (2.7-7.7); Neutrophil % 48.4 % (47-70); Platelet Count 196 K/mm3 (150-450); RBC Distribution Width CV 12.2 % (11.6-14.6); RBC Distribution Width SD 40.7 fl (35.1-43.9); Red Blood Count 4.78 M/mm3 (4.6-6.2); White Blood Count 4.5 K/mm3 (4.4-11.0)
[2021-02-26 10:00] LABS: ALB/GLOB Ratio 0.6 RATIO (0.9-2.4); AST(SGOT) 32 U/L (15-37); Alanine Aminotransfer ALT/SGPT 17 U/L (16-61); Albumin, Serum 3.4 g/dL (3.2-5.0); Alkaline Phosphatase 90 U/L (45-117); Anion Gap 4 (5-15); BUN 24 mg/dL (7-18); BUN/Creat Ratio 19.5 RATIO (10-20); Calcium,Total 8.9 mg/dL (8.5-10.1); Chloride 104 mmol/L (98-107); Creatinine, Serum 1.23 mg/dL (0.70-1.30); EST Glomerular Filtration Rate 61 mL/min (>60); Est Glom Filt Rate - Afr Amer 73 mL/min (>60); Globulin 5.4 g/dL (2.2-4.2); Glucose 95 mg/dL (74-106); LDH 144 U/L (87-241); Potassium 4.4 mmol/L (3.5-5.1); Protein, Total 8.8 g/dL (6.4-8.2); Sodium Level 140 mmol/L (136-145)
[2021-02-27 16:09] LABS: Albumin 3.4 g/dL (2.9-4.4); Alpha-1-Globulins 0.2 g/dL (0.0-0.4); Alpha-2-Globulins 0.6 g/dL (0.4-1.0); Free Kappa Light Chains 35.1 mg/L (3.3-19.4); Free Lambda Light Chains 5.1 mg/L (5.7-26.3); Gamma Globulin 2.9 g/dL (0.4-1.8); Immunoglobulin G 702 mg/dL (603-1613); PROEL- TOTAL PROTEIN 8.1 g/dL (6.0-8.5)
[2021-02-28 13:03] LABS: Immunoglobulin A 31 mg/dL (61-437); Immunoglobulin M 3439 mg/dL (15-143)
== END ==
PROVIDERS: PCP Family Medicine; Referring Provider Internal Medicine Hematology & Oncology; Visit Provider Internal Medicine Hematology & Oncology
DX: C88.0 Waldenstrom macroglobulinemia (principal); D47.2 Monoclonal gammopathy
CPT/HCPCS: 36415; 80053; 82784; 83615; 83883; 84165; 85025; 86334

== ENCOUNTER → 2021-04-27 08:42 | Outpatient (CLI) | payer OTHER, MEDICARE, SELFPAY ==
[2021-03-05 11:37] VITALS: BMI 30.5
--- NOTE | 2021-04-27 08:56 | US_ITS ---
PROCEDURES: ULTRASOUND AORTA REASON FOR EXAM: Male, 76 years old. Family history of abdominal aortic aneurysm. TECHNIQUE: Ultrasound evaluation of the aorta was performed with real-time and static anderson-scale imaging. COMPARISON: None. FINDINGS: There is no elongation or tortuosity of the abdominal aorta. Aorta measures: Proximal 2.2; cm. Middle 1.8 cm. Distal 1.7 cm. Aorta measure transversely: Proximal 2.1 cm. Middle 1.7 cm. Distal 2.1 cm. Right iliac artery measures: 1.2 cm. Right iliac artery measure transversely: 1.1 cm. Left iliac artery measures: 1.1 cm. Left iliac artery measure transversely: 1.1 cm. There is no demonstrated aneurysm.. US/Aorta IMPRESSION: Normal abdominal aorta. Electronically Signed: Lorne Maloney MD at 13:36 EDT , Service support ,
== END ==
LOC: US 08:45
PROVIDERS: PCP Family Medicine; Referring Provider Family Medicine; Visit Provider Family Medicine
DX: Z82.49 Family history of ischemic heart disease and other diseases of the circulatory system (principal)
CPT/HCPCS: 76775

== ENCOUNTER → 2021-05-28 07:45 | Outpatient (CLI) | payer OTHER, MEDICARE, SELFPAY ==
[2021-03-05 11:37] VITALS: BMI 30.5
[2021-05-28 08:45] LABS: Absolute Lymphocyte Count 1.73 X10^3/uL (0.83-4.51); Basophil# 0.04 X10^3/uL; Basophil% 0.9 % (0-1); Eosinophil# 0.28 X10^3/uL; Hematocrit 42.9 % (40-54); Hemoglobin 13.6 g/dL (13.0-16.5); Lymphocyte # 1.73 X10^3/ul (0.83-4.51); Lymphocyte % 37.2 % (19-41); Mean Corp Hgb Conc 31.7 g/dL (32-36); Mean Corpuscular Hgb 28.3 pg (27.0-32.0); Mean Corpuscular Volume 89.2 fL (80-94); Mean Platelet Vol. 10.3 fl (6.2-12.0); Monocyte# 0.57 X10^3/uL; Monocyte% 12.3 % (0-10); NRBC Flagged by Analyzer 0 % (0-5); Neutrophil # 2.01 X10^3/uL (2.7-7.7); Neutrophil % 43.2 % (47-70); Platelet Count 184 K/mm3 (150-450); RBC Distribution Width SD 39.2 fl (35.1-43.9); Red Blood Count 4.81 M/mm3 (4.6-6.2); White Blood Count 4.7 K/mm3 (4.4-11.0)
[2021-05-28 09:26] LABS: ALB/GLOB Ratio 0.6 RATIO (0.9-2.4); AST(SGOT) 17 U/L (15-37); Alanine Aminotransfer ALT/SGPT 17 U/L (16-61); Albumin, Serum 3.5 g/dL (3.2-5.0); Alkaline Phosphatase 84 U/L (45-117); Anion Gap 4 (5-15); BUN 21 mg/dL (7-18); BUN/Creat Ratio 18.4 RATIO (10-20); Chloride 104 mmol/L (98-107); Creatinine, Serum 1.14 mg/dL (0.70-1.30); EST Glomerular Filtration Rate 66 mL/min (>60); Est Glom Filt Rate - Afr Amer 80 mL/min (>60); Globulin 5.5 g/dL (2.2-4.2); Glucose 91 mg/dL (74-106); LDH 115 U/L (87-241); Potassium 4.2 mmol/L (3.5-5.1); Sodium Level 137 mmol/L (136-145)
[2021-05-29 16:09] LABS: Albumin 3.6 g/dL (2.9-4.4); Alpha-1-Globulins 0.2 g/dL (0.0-0.4); Alpha-2-Globulins 0.6 g/dL (0.4-1.0); Free Kappa Light Chains 38.3 mg/L (3.3-19.4); Free Lambda Light Chains 7.6 mg/L (5.7-26.3); Gamma Globulin 3.2 g/dL (0.4-1.8); Immunoglobulin G 692 mg/dL (603-1613); PROEL- TOTAL PROTEIN 8.6 g/dL (6.0-8.5)
[2021-05-29 17:27] LABS: Immunoglobulin A 34 mg/dL (61-437); Immunoglobulin M 3509 mg/dL (15-143)
== END ==
PROVIDERS: PCP Family Medicine; Referring Provider Internal Medicine Hematology & Oncology; Visit Provider Internal Medicine Hematology & Oncology
DX: D47.2 Monoclonal gammopathy (principal); C88.0 Waldenstrom macroglobulinemia
CPT/HCPCS: 36415; 80053; 82784; 83615; 83883; 84165; 85025; 86334

== ENCOUNTER 2021-11-09 09:00 | Outpatient (RCR) | payer OTHER, MEDICARE, SELFPAY ==
--- NOTE | 2021-09-28 09:32 | HP.PTEVAL_ITS ---
Patient's Visit Information LARISA GE is a 76 year old M referred to Physical Therapy by Dr. Boni Payne DO with a diagnosis of strain R RC. Date of Evaluation: 09/28/21 Physical Therapist: CURLY DensonT, OCS, CSCS - Visit Plan Frequency: 2x /Week Duration: 4-6 Weeks Plan: 2x/week for 4-6 weeks for. 1. Manual distraction and mobs g-h to improve R shoulder ROM and pain, PROM IR/ER, flexion. 2. postural and RC strength and scap stab, postural work. 3. US R ant joint line as needed. 4. Monitor posture and activitiy modification - Subjective Goes by Stanislav. R shoulder hurts with certain motions for last couple years. More painful last couple months.INtermittent. Reaching into jacket pocket and behind him is tough. Wash behind head is tough. Pain with these movements to 6/10. Comfortable at rest. sleeping can be interrupted if bad positioning. Saw [facility] and gave option of injection or PT and he chose PT. Not sure why it is worse last couple months. No MRI yet but may have torn RC. Driving for [email or web address] is not a problem. Able to do basics at home with care. Cutting firewood without an issue. Hobbies are not a problem as long as he keeps arms in front of him. - Pain R shoulder Pain Intensity (Out of 10): 0 Pain Intensity Range: 0, 7 - Objective is R handed. Has forward head and protracted scap posture. tightness apparent in pectorals. Tender to palpation at supra insertion R and anterior joint line. cervical aROM 45 ext and 60 rotations, stiff but not painful. L shoulder aROM 155 elevation and 65 ext rotation and L4 IR. R shoulder AROM 140 elevation limited by pain, 50 ext rotation, L5 IR but very painful. R shoulder PROM stiff endfeel with elevation to 145, IR at 80 abduction sitff and 45, ext rotation to 45 stiff and painful. reflex 1/3 bi and tri. Sensation UE WNL to gross light touch. Strength 4/5 B ext rotation, 4+ IR no pain. flexion 4 and abd 4 on right and some pain. - HK, - neer, - ext rotation lag test, - drop arm, - apprehension. - Balance/Special Test Scores Quick DASH Score: 15.9075 - Goals Goal 1:: Sleep without waking at night due to pain Goal Time Frame: 4-6 Weeks Goal 2:: I apporp HEP to minimize future problems. Goal Time Frame: 4-6 Weeks Goal 3:: Patient feel pain is 90% improved at 1/10 at worst. Goal Time Frame: 4-6 Weeks Goal 4:: Quick DASH score 13 or better. Goal Time Frame: 4-6 Weeks - Rehabilitation Potential Physical Therapy Diagnosis: R RC strain vs OA Rehabilitation Potential: Fair - Anticipated Interventions Patient/Client Instruction: Educate patient on: Condition, Plan of Care For the Purpose of:: To decrease pain, To increase ROM, To improve muscle performance and motor function, To increase tolerance to activity/condition/position Therapeutic Exercise to Include: Strength training, Postural training, Flexibilty training, Passive ROM, Active ROM, Scapular Strength/Stabilization For the Purpose of:: To decrease pain, To increase ROM, To improve muscle performance and motor function, To increase tolerance to activity/condition/position, To improve ability of physical actions for home/community/work/leisure Manual Therapy Techniques to Include: Mobilization, Passive ROM, Soft tissue mobilization For the Purpose of:: To decrease pain, To increase ROM, To improve nutrient delivery to tissue, To improve performance and independence with ADL's Cryotherapy (ice pack, ice massage): Yes Ultrasound (thermal/non thermal): Yes - nonthermal For the Purpose of:: To decrease pain, To decrease swelling/inflammation, To improve nutrient delivery to tissue Thank you for the opportunity to evaluate your patient. For Medicare and Medicare HMO plans, please review the plan of care and approve it. It will need to be FAXED BACK to us at [phone] for Medicare purposes. For Medicare only, by signing this I certify the plan of care. Please let me know if there are questions or concerns regarding this plan of care. Physician Signature: Date:
--- NOTE | 2021-11-09 09:18 | HP.PTDCSUM_ITS ---
It has been my pleasure to treat LARISA GE referred by Dr. Boni Payne DO, with the diagnosis of strain R RC for a total of 7 visit(s). Discharge Date: 11/09/21 Please see the following information for a summary of their discharge status. Subjective: I am having toruble with one motion which is rowing with band, can do it without band easily. Reaching behind and into pocket getting better. Also stiff and sore upon waking often. No f/u with doctor. Activities are pretty normal, Carries firewood to basement without a problem. Getting dressed is just mild. R shoulder Pain Intensity (Out of 10): 0 % Improvement: 66 Objective/Function: 155 flexion B UE no pain, 150 abd without pain, Symmetircal IR shoulders to L5 without pain, Er full and painfree. Can reach in pocket without pain. has pain and clicking in shoulder coming back for a resisted row position but is other pickett painfree today. Goal 1:: Sleep without waking at night due to pain Goal Progress: Goal Met, stiff waking. Goal 2:: I apporp HEP to minimize future problems. Goal Progress: Goal Met Goal 3:: Patient feel pain is 90% improved at 1/10 at worst. Goal Progress: 66%, progressing Goal 4:: Quick DASH score 13 or better. Goal Progress: Progressing Plan: d/c to HEP. Pt to contact doctor if frustrated with slow improvement or gets worse. If there are questions or concerns regarding this patient's physical therapy, please feel free to call me at [phone]. Thank you for the referral of this patient. Sincerely, Michael Stephenson, DPT, OCS, CSCS Balance/Gait/Functional tests - Balance/Special Test Scores Quick DASH Score: 11.3629
== END 2021-11-09 19:00 | disposition home or self-care (01) ==
LOC: PT 09:00
PROVIDERS: PCP Family Medicine; Referring Provider Student in an Organized Health Care Education/Training Program; Visit Provider Student in an Organized Health Care Education/Training Program
DX: S46.011D Strain of muscle(s) and tendon(s) of the rotator cuff of right shoulder, subsequent encounter (principal)
CPT/HCPCS: 97035; 97110; 97140; 97161; 97164; 97530

== ENCOUNTER 2021-12-10 11:36 | Outpatient (CLI) | payer OTHER, MEDICARE, SELFPAY ==
[2021-12-10 12:23] LABS: Erythrocyte Sedimentation Rate 82 mm/hr (0-20)
[2021-12-10 13:28] LABS: CRP < 2.90 mg/L (0.0-3.0); Thyroid Stim Hormone (TSH) 2.21 uIU/mL (0.358-3.74)
[2021-12-11 12:09] LABS: Anti-Centromere B Ab <0.2 AI (0.0-0.9); Anti-Chromatin <0.2 AI (0.0-0.9); Anti-Jo <0.2 AI (0.0-0.9); Anti-Scleroderma-70 AB <0.2 AI (0.0-0.9); RNP Ab <0.2 AI (0.0-0.9); SJOGREN'S Anti-SS-A test < 0.2 AI (0.0-0.9); SJOGREN'S Anti-SS-B test < 0.2 AI (0.0-0.9); Smith Ab <0.2 AI (0.0-0.9)
[2021-12-11 14:29] LABS: Anti-dsDNA Ab 1 IU/mL (0-9)
[2021-12-12 08:10] LABS: Cytoplasmic Ab (C-ANCA) <1:20 titer (Neg:<1:20); Endomysial Antibody IgA Negative (Negative)
[2021-12-12 11:08] LABS: Immunoglobulin A 27 mg/dL (61-437); Perinuclear Ab (P-ANCA) <1:20 titer (Neg:<1:20); t-Transglutaminase IgA <2 U/mL (0-3)
== END 2021-12-10 23:59 | disposition home or self-care (01) ==
LOC: LAB 11:38
PROVIDERS: PCP Family Medicine; Referring Provider Nurse Practitioner Adult Health; Visit Provider Nurse Practitioner Adult Health
DX: K21.9 Gastro-esophageal reflux disease without esophagitis (principal)
CPT/HCPCS: 36415; 82784; 83516; 84443; 85652; 86140; 86225; 86235; 86255; 86256

== ENCOUNTER 2021-12-18 11:57 | Outpatient (CLI) | payer OTHER, MEDICARE, SELFPAY ==
--- NOTE | 2021-12-18 12:10 | NM_ITS ---
CLINICAL: 76-year-old male with reported history of gastroesophageal reflux disease, hiatal hernia SOLID PHASE 99m Tc SULFUR COLLOID GASTRIC EMPTYING STUDY COMPARISON: Abdominal ultrasound report 04/27/2021 FINDINGS: The patient was administered 1.0 mCi of 99m Tc sulfur colloid mixed with egg and consumed per os. Image acquisitions in the anterior-posterior projections for a total of 60 minutes. There is prompt visualization of the stomach. There is no gastroesophageal reflux identified. The T ? linear fit was calculated to be 18.09 minutes, (Normal 65-110 minutes). NM/Gastric Emptying Study IMPRESSION: 1. NORMAL 99m Tc sulfur colloid solid phase gastric emptying imaging examination. A. There is normal and preserved solid phase gastric emptying compared to normal controls. (Scar et al, Gastroenterology 77: 75, 1979 Claudio et al, Semin Nucl Med 12: 116, 1981 Maria Dolores et al, SN Procedure Guidelines Adult Solid Meal Gastric Emptying Study 3.0 [email or web address]). Electronically Signed: Samson Potts DO at 22:51 EST ,
== END 2021-12-18 23:59 | disposition home or self-care (01) ==
PROVIDERS: PCP Family Medicine; Referring Provider Nurse Practitioner Adult Health; Visit Provider Nurse Practitioner Adult Health
DX: K21.9 Gastro-esophageal reflux disease without esophagitis (principal)
CPT/HCPCS: 78264; A9541

== ENCOUNTER 2022-02-11 05:27 | Day surgery (SDC) | payer OTHER, MEDICARE, SELFPAY ==
--- NOTE | 2022-02-09 06:30 | EGD_PTH ---
PATIENT: LARISA GE LOC: EN U#:[id number] AGE/SX: 76/M ROOM: RE02/11/[address]: Dr. Clarence Noguera DO : 1945 BED: DIS: 02/11/2022 SPEC #: [id number] RECD: 02/11/22 08:06 STATUS: DAMARIS RENicola #: [id number] LOCO: 02/09/22 06:[address]: Clarence Noguera DEPT: SURGICAL PATHOLOGY RECD BY: Jayla Collazo ENTERED: 02/11/22 08:40 SP TYPE: EGD BIOPSY OT DR: Dr. Baldemar Dotson DO Tissues: A - Esophagus, NOS B - Esophagus, NOS Procedures: Special Stain Group II Surgery Specimen Level IV Alcian Blue/PAS (control) HEADER OPERATION: EGD ([facility] [place]), biopsy PRE-OP DIAGNOSIS: GERD, hiatus hernia TISSUE SUBMITTED: A ? Distal esophagus biopsy, B ? Mid esophagus polyp biopsy MICROSCOPIC DIAGNOSIS A. Distal esophagus, biopsy: Fragments of gastroesophageal mucosa with mild chronic inflammation. Intestinal metaplasia (goblet cell metaplasia) not identified. Focal changes consistent with eosinophilic esophagitis. See comment. B. Mid esophagus polyp, biopsy: Fragments of gastroesophageal mucosa with moderate chronic inflammation. Intestinal metaplasia (goblet cell metaplasia) not identified. Focal changes consistent with eosinophilic esophagitis. See comment. SJ:rg 02/12/2022 COMMENT A & B. Increased number of eosinophils (>20 per high power field) are noted, consistent with eosinophilic esophagitis. Alcian blue/PAS stain with matched control is used in the evaluation of the specimen. Correlation with clinical, endoscopic findings and appropriate follow up are necessary. MICROSCOPIC DESCRIPTION Slides are reviewed. GROSS DESCRIPTION A - Received in fixative is one container labeled with the patient's name and designated distal esophagus biopsy. The specimen consists of multiple irregular fragments of light camp soft tissue that in aggregate measure 1 x 0.4 x 0.1 cm. The specimen is totally submitted in one cassette. B - Received in fixative is one container labeled with the patient's name and designated mid esophageal polyp. The specimen consists of two irregular fragments of light camp soft tissue that in aggregate measure 0.8 x 0.3 x 0.1 cm. The specimen is totally submitted in one cassette. / ABDIAS:oxana 02/11/2022 TC:3 CPT: 72003 x2, 63429 x2
[2022-02-11 05:58] VITALS: BP 160/72; PULSE 60; RESP 16; TEMP 36.7; O2SAT 95; BMI 29.8
[2022-02-11] MEDS: Lactated Ringers 1,000 ML 15 ML IV (06:03)
--- NOTE | 2022-02-11 06:39 | HP.PCM_ITS ---
HPI - General HPI Narrative LARISA GE, is a 76 M who presents to the office today for heartburn which persists despite taking a PPI. Referred by his padder/oncologist Dr Torrez whom he sees for MGUS. Mostly occurs in the middle of the night, but has happened during daytime when upright too. Minimal relief with omeprazole. He has had EGD, no esophageal biopsies. Uses chewable leonarda seltzer and liquid vinegar/figueroa prn, both help with heartburn. No other GI issues. EGD 03/2020 Dr Morfin general surgeon: Findings: A small hiatal hernia was present. No biopsies or other specimens were collected for this exam. Localized mild inflammation characterized by erythema was found in the prepyloric region of the stomach. Biopsies were taken with a cold forceps for Helicobacter pylori testing. The examined duodenum was normal. No biopsies or other specimens were collected for this exam. Impression: - Small hiatal hernia. No specimens collected. - Gastritis. Biopsied. - Normal examined duodenum. No specimens collected. Biopsies: negative H pylori, chronic gastritis ROS Const Constitutional: No fatigue, fever(s), headache(s), weight change, sleep problems, abnormal sleep pattern or change in appetite ENT ENT: No headache(s), difficulty swallowing, hoarseness or sore throat Resp Respiratory: No cough, hemoptysis or shortness of breath Cardio Cardiology: No chest pain at rest or generalized swelling Gastro GI: Positive for heartburn; No abdominal pain, belching, bloating, change in bowel habits, change in stool character, coffee ground emesis, constipation, cramping, diarrhea, difficulty swallowing, feeling full early, excessive flatus, incontinent of stools, Vomiting blood/hematemesis, Blood in stool, loose stools, Black,tarry stools, nausea/dyspepsia, pain with swallowing or vomiting Musc Musculoskeletal: No joint pain, back pain, joint swelling, numbness or tingling Skin Skin: No itchy eyes or rash Neuro Neurology: No behavioral changes, confusion, headache(s), numbness or tingling Psych Psychiatric: No abnormal sleep pattern, No anxiety, No behavioral changes, No change in appetite, No confusion and No depression Endo Endocrine: No cold intolerance, fatigue, heat intolerance, increased thirst/drinking or weight change Aller/Imm Allergy/Immunologic: No food intolerance or itchy eyes Eduard/Lymp Hematologic/Lymphatic: No easy bleeding, easy bruising or enlarged lymph nodes Exam Const General: cooperative, healthy appearing, comfortable, no acute distress, well developed and well groomed Neck Neck: normal visual inspection and supple Resp Effort & Inspection: normal respiratory effort GI Inspection: normal to inspection Auscultation: normal bowel sounds Palpation: soft and nontender Quality Reporting Tobacco Screening (CMS 138) Smoking Status: Never smoker Assessment and Plan Assessment and Plan (1) GERD (gastroesophageal reflux disease): Status: Acute (2) HH (hiatus hernia): Status: Chronic Orders: Orders: CRP Today K21.9 Erythrocyte Sed Rate Today K21.9 Celiac Disease Profile Today K21.9 Thyroid Stim Hormone (TSH) Today K21.9 ANCA Today K21.9 Gastric Emptying Study Today K21.9 Plan: 76 yr old male with acid reflux refractory to PPI treatment. Will check labs today to eval for autoimmune or other cause for refractory heartburn. Will get gastric emptying study. Pt will be scheduled for EGD 02/05/22, which will include biopsies to eval for Gonzalez's esophagus. Rx sent in for pantoprazole 40 mg qam. Plan Details Other Medications: New: pantoprazole 40 mg PO QAM 90 tabs 1RF I have re-examined the patient. There are no clinical changes since date of exam. [facility] Medical History (Updated 02/05/22 @ 12:17 by Martita Albrecht) Cataract, left eye Gastric reflux Hyperlipidemia Leukopenia Osteopenia Shoulder pain, right Vitamin D deficiency Home Medications B complex-vitamin C-folic acid 800 mcg PO DAILY 09/09/18 [History Last Taken Unknown] Collagen Types 1,2 &3 60 mg PO DAILY 09/09/18 [History Last Taken Unknown] Polypodium 240 mg PO DAILY 09/09/18 [History Last Taken Unknown] Tumeric Curcumin 500 mg PO DAILY 09/09/18 [History Last Taken Unknown] calcium carbonate-vitamin D3 1 tab PO DAILY 09/09/18 [History Last Taken Unknown] coenzyme Q10 100 mg PO DAILY 09/09/18 [History Last Taken Unknown] ginkgo biloba 120 mg PO DAILY 09/09/18 [History Last Taken Unknown] nsbpyorv-lfxgzc-rgb C-Mn-boron 1 ea PO DAILY 09/09/18 [History Last Taken Unknown] multivitamin 1 tab PO DAILY 09/09/18 [History Last Taken Unknown] omega-3 fatty acids-fish oil 650 mg PO DAILY 09/09/18 [History Last Taken Unknown] zinc 50 mg PO DAILY 09/09/18 [History Last Taken Unknown] pantoprazole 40 mg tablet,delayed release 40 mg PO QAM #90 tab 12/10/21 [Rx Last Taken Unknown] pantoprazole 40 mg PO DAILY 02/05/22 [History Last Taken 02/11/22] Allergy/AdvReac Type Severity Reaction Status Date / Time No Known Allergies Allergy Verified 02/11/22 05:57 Family History (Reviewed 12/10/21 @ 11:02 by Sheree Stewart TAX COMPLIANCE MANAGER, TAX COMPLIANCE MANAGER-C) Brother Prostate cancer Mother Lung cancer Father Colon cancer Daughter Thyroid cancer Surgical History (Reviewed 12/10/21 @ 11:02 by Sheree Stewart TAX COMPLIANCE MANAGER, TAX COMPLIANCE MANAGER-C) History of esophagogastroduodenoscopy (EGD) (~03/2020) History of facial surgery History of right cataract surgery History of total right hip replacement Social History (Reviewed 12/10/21 @ 11:02 by Sheree Stewart TAX COMPLIANCE MANAGER, TAX COMPLIANCE MANAGER-C) Smoking Status: Never smoker second hand exposure: No alcohol intake: never substance use type: does not use what type of physical activity do you participate in: walking and weight training frequency: 1-2 times per week krzysztof/jehovah's witness: Hindu seatbelt use: always do you feel safe at home: Yes ROS Review of Systems ROS Unobtainable: other Constitutional Constitutional: Denies fatigue, fever(s), poor appetite, weight gain or weight loss ENT HEENT: Denies mouth lesions Cardiovascular Cardiovascular: Denies abdominal bloating, abdominal edema or abdominal pain Respiratory/Chest Respiratory/Chest: Denies change in mental status, change in phlegm color, chest congestion or chest tightness Gastrointestinal Gastrointestinal: Denies belching, bloating, change in bowel habits, change in stool character, chewing difficulty, coffee ground emesis, constipation, cramping, diarrhea, dyspepsia, dysphagia, early satiety, excessive flatus, fecal incontinence, heartburn, hematemesis, hematochezia, hemorrhoids, loose stools, melena, nausea, odynophagia, rectal bleeding, tenesmus, vomiting or weight changes Genitourinary Genitourinary: Denies abdominal discomfort, burning urination or itching Musculoskeletal Musculoskeletal: Reports as per HPI; Denies muscle weakness or myalgias Integumentary Integumentary: Denies jaundice Neurologic Neurologic: Denies lack of coordination or weakness Psychiatric Psychiatric: Denies confusion, depression, memory loss, mood swings, paranoia or suicidal ideation Endocrine Endocrinology: Denies systems reviewed and no addt'l complaints, except as documented Hematologic/Lymphatic Hematologic/Lymphatic: Denies anemia, easy bleeding, easy bruising or lymphadenopathy Allergic/Immunologic Allergic/Immunologic: Denies systems reviewed and no addt'l complaints, except as documented Vital Signs Vital Signs Vital Signs: 02/11/22 05:58 Temperature 98.1 F Temperature Source Temporal Pulse Rate 60 Respiratory Rate 16 Respiratory Pattern Normal Blood Pressure 160/72 H Blood Pressure Mean 101 Blood Pressure Source Monitor Blood Pressure Position Semi-Fowlers Blood Pressure Location Right Arm Pulse Ox 95 Oxygen Delivery Method Room Air Weight Weight: 208 lb Body Mass Index (BMI) 29.8 Physical Exam Const alert, oriented x3, no apparent distress, healthy appearing and well nourished General Appearance: cooperative, comfortable, well kempt and well developed Orientation / Consciousness: awake and oriented to person HEENT Head and Scalp: normocephalic and atraumatic Face and Sinus: normal facial exam Mouth: oral and palatal mucosa normal Eyes General Eye: normal appearance of both eyes Neck full ROM Lymph Lymphatic: no lymphadenopathy noted Chest inspection of chest normal Resp normal respiratory effort and no use of accessory muscles Cardio regular rate and regular rhythm GI normal to inspection, nondistended, normoactive bowel sounds, soft to palpation, non-tender, non-distended and no masses Auscultation: normoactive bowel sounds Palpation: soft Percussion: normal to percussion Rectal Exam: visual inspection normal and normal sphincter tone no CVA tenderness Back/Spine no CVA tenderness and normal ROM Extremity normal to inspection Peripheral Pulses: Yes pulses 2+ throughout Skin no rashes or lesions noted General Skin Exam: no breakdown, elasticity normal and turgor normal Neuro oriented x3 Motor Exam: strength 5/5 throughout Psych mental status grossly normal Appearance: grossly normal Attitude: calm Activity / Motor Behavior: appropriate eye contact Speech: normal speech Thought Process: normal thought process Thought Content: normal thought content Attention / Concentration: attention grossly intact Memory / Cognition: memory grossly intact Insight: insight good Judgement: judgement good Assessment & Plan Assessment/Plan (1) GERD (gastroesophageal reflux disease): PLAN: He will undergo an upper endoscopy to evaluate his upper GI tract. He was explained alternatives, risk, benefits including outstanding bleeding, infection, sepsis, perforation, need for emergent surgery he will have an ASA 1
[2022-02-11 06:55] VITALS: BP 147/80; BP 160/72; PULSE 68; RESP 16; TEMP 36.7; O2SAT 97
--- NOTE | 2022-02-11 06:58 | OP.EGD_ITS ---
Patient Name: Blake Lemons Procedure Date: 02/11/2022 6:21 AM Date of : 1945 Age: 76 Procedure: Upper GI endoscopy Indications: Epigastric abdominal pain, Heartburn Providers: Clarence Noguera DO Medicines: Sedation Required Anesthesia Staff Assistance Patient Profile: This is a 76 year old male. Refer to note in patient chart for documentation of history and physical. Patient has symptoms of acute epigastric abdominal pain and chronic heartburn. Complications: No immediate complications. Procedure: Pre-Anesthesia Assessment: - Prior to the procedure, a History and Physical was performed, and patient medications and allergies were reviewed. The risks and benefits of the procedure and the sedation options and risks were discussed with the patient. All questions were answered and informed consent was obtained. Patient identification and proposed procedure were verified by the physician in the pre-procedure area. Mental Status Examination: alert and oriented. Airway Examination: normal oropharyngeal airway and neck mobility. Respiratory Examination: clear to auscultation. CV Examination: normal. Prophylactic Antibiotics: The patient does not require prophylactic antibiotics. Prior Anticoagulants: The patient has taken no previous anticoagulant or antiplatelet agents. ASA Grade Assessment: II - A patient with mild systemic disease. After reviewing the risks and benefits, the patient was deemed in satisfactory condition to undergo the procedure. The anesthesia plan was to use moderate sedation / analgesia (conscious sedation). Immediately prior to administration of medications, the patient was re-assessed for adequacy to receive sedatives. The heart rate, respiratory rate, oxygen saturations, blood pressure, adequacy of pulmonary ventilation, and response to care were monitored throughout the procedure. The physical status of the patient was re-assessed after the procedure. After obtaining informed consent, the endoscope was passed under direct vision. Throughout the procedure, the patient's blood pressure, pulse, and oxygen saturations were monitored continuously. The gastroscope was introduced through the mouth, and advanced to the second part of duodenum. The upper GI endoscopy was accomplished without difficulty. The patient tolerated the procedure well. Moderate Sedation: Moderate (conscious) sedation was administered by the endoscopy nurse and supervised by the endoscopist. The patient's oxygen saturation, heart rate, blood pressure and response to care were monitored. Total physician intraservice time was 15 minutes. Scope In: 6:44:38 AM Scope Out: 6:50:46 AM Total Procedure Duration Time 0 hours 6 minutes 8 seconds Findings: LA Grade A (one or more mucosal breaks less than 5 mm, not extending between tops of 2 mucosal folds) esophagitis with no bleeding was found 38 to 40 cm from the incisors. Biopsies were taken with a cold forceps for histology. Verification of patient identification for the specimen was done. Estimated blood loss was minimal. Patchy glycogenic acanthosis was found in the lower third of the esophagus. Biopsies were taken with a cold forceps for histology. Verification of patient identification for the specimen was done. Estimated blood loss was minimal. A medium amount of food (residue) was found in the gastric body. The first portion of the duodenum was normal. Impression: - LA Grade A reflux esophagitis. Biopsied. - Glycogenic acanthosis of the esophagus. Biopsied. Glycogenic acanthosis is described as benign thickening of the esophageal squamous epithelium of unknown etiology. Although its etiology is unknown, it has been reported that glycogenic acanthosis may be related to gastroesophageal reflux - A medium amount of food (residue) in the stomach. - Normal first portion of the duodenum. Recommendation: - Discharge patient to home. - Resume previous diet. - Continue present medications. - Await pathology results. -Gastric emptying study for delayed gastric emptying and work-up for gastroparesis. Procedure Code(s): --- Professional --- 41481, Esophagogastroduodenoscopy, flexible, transoral; with biopsy, single or multiple G0500, Moderate sedation services provided by the same physician or other qualified health pet caretaker performing a gastrointestinal endoscopic service that sedation supports, requiring the presence of an independent trained observer to assist in the monitoring of the patient's level of consciousness and physiological status; initial 15 minutes of intra-service time; patient age 5 years or older (additional time may be reported with 07606, as appropriate) CPT copyright 2017 [employer]. All rights reserved. The codes documented in this report are preliminary and upon electroencephalograph technologist review may be revised to meet current compliance requirements. Clarence Nougera DO 02/11/2022 6:58:29 AM This report has been signed electronically. Number of Addenda: 1 Note Initiated On: 02/11/2022 6:21 AM Addendum Number: 1 Addendum Date: 07/18/2022 6:27:17 AM MAC was used as sedation for this procedure. Clarence Noguera DO 07/18/2022 6:27:24 AM This report has been signed electronically.
[2022-02-11 07:00] VITALS: BP 152/91; BP 160/72; PULSE 73; RESP 16; O2SAT 96
--- NOTE | 2022-02-11 07:00 | OP.CCLET_ITS ---
07/18/2022 Baldemar Dotson [address] [place] [address] Re : Upper GI endoscopy procedure for Blake Lemons Dear Dr. Dotson This procedure was performed on Friday, February 11, 2022. My impressions and recommendations are as follows: Impressions : - LA Grade A reflux esophagitis. Biopsied. - Glycogenic acanthosis of the esophagus. Biopsied. Glycogenic acanthosis is described as benign thickening of the esophageal squamous epithelium of unknown etiology. Although its etiology is unknown, it has been reported that glycogenic acanthosis may be related to gastroesophageal reflux - A medium amount of food (residue) in the stomach. - Normal first portion of the duodenum. Recommendations : - Discharge patient to home. - Resume previous diet. - Continue present medications. - Await pathology results. -Gastric emptying study for delayed gastric emptying and work-up for gastroparesis. My findings are described in the full procedure note, which is enclosed. If I can be of further assistance, please feel free to contact me at . Sincerely, Clarence Noguera, 02/11/2022 6:58:29 AM This report has been signed electronically.
[2022-02-11 07:05] VITALS: BP 154/90; BP 160/72; PULSE 69; RESP 16; O2SAT 96
[2022-02-11 07:10] VITALS: BP 160/72; BP 160/87; PULSE 67; RESP 16; TEMP 36.8; O2SAT 98
[2022-02-11 07:22] VITALS: BP 160/72
== END 2022-02-11 07:59 | disposition home or self-care (01) ==
LOC: EN 05:28 → AC 05:29
PROVIDERS: PCP Family Medicine; Referring Provider Family Medicine; Visit Provider Internal Medicine Gastroenterology
PROC: 0DJ08ZZ Inspection of Upper Intestinal Tract, Via Natural or Artificial Opening Endoscopic (ICD-10-PCS; CPT 43235; principal; 2022-02-11 06:25)
DX: K21.00 Gastro-esophageal reflux disease with esophagitis, without bleeding (principal); K44.9 Diaphragmatic hernia without obstruction or gangrene; E78.5 Hyperlipidemia, unspecified; Z79.899 Other long term (current) drug therapy; Z80.0 Family history of malignant neoplasm of digestive organs
CPT/HCPCS: 43239; 88305; 88313; J7120; J2405

== ENCOUNTER 2022-02-22 16:39 | Emergency (ER) | payer MEDICARE, OTHER, SELFPAY ==
[2022-02-22 16:40] VITALS: BP 201/93; PULSE 71; RESP 16; TEMP 36.4; O2SAT 97; BMI 28.7
--- NOTE | 2022-02-22 17:02 | EDS_ITS ---
HPI History of Present Illness HPI Narrative: Fall with right hip and thigh pain. Chief Complaint: Lower Extremity Injury Informant: patient Occured/Mechanism Mechanism/Context: Yes blunt trauma Onset/Context/Timing Onset: Today and Hours Context: Sudden Onset Timing: Continuous Quality of Pain: Sharp Current Severity: Mild Associated Symptoms Associated Symptoms: Negative for Parasthesia, Weakness and Loss of Funtion Narrative Narrative: 76-year-old male with lost his balance fell today and home outside. Complaining of right hip and thigh pain. He has had a prior right hip prosthesis. He denies hitting his head or have any head or neck pain. No chest or abdominal pain. Both upper and left lower extremities he denies any complaints. States he felt fine prior to the fall. Prior similar symptoms: No Recent Illness/Hospitalization: No PFSH PFSH Medical History Cataract, left eye Gastric reflux Hyperlipidemia Leukopenia Osteopenia Shoulder pain, right Vitamin D deficiency Home Medications B complex-vitamin C-folic acid 800 mcg PO DAILY 09/09/18 [History Last Taken Unknown] Collagen Types 1,2 &3 60 mg PO DAILY 09/09/18 [History Last Taken Unknown] Polypodium 240 mg PO DAILY 09/09/18 [History Last Taken Unknown] Tumeric Curcumin 500 mg PO DAILY 09/09/18 [History Last Taken Unknown] calcium carbonate-vitamin D3 1 tab PO DAILY 09/09/18 [History Last Taken Unknown] coenzyme Q10 100 mg PO DAILY 09/09/18 [History Last Taken Unknown] ginkgo biloba 120 mg PO DAILY 09/09/18 [History Last Taken Unknown] blcaepyc-ghacwh-bqw C-Mn-boron 1 ea PO DAILY 09/09/18 [History Last Taken Unknown] multivitamin 1 tab PO DAILY 09/09/18 [History Last Taken Unknown] omega-3 fatty acids-fish oil 650 mg PO DAILY 09/09/18 [History Last Taken Unknown] zinc 50 mg PO DAILY 09/09/18 [History Last Taken Unknown] pantoprazole 40 mg tablet,delayed release 40 mg PO QAM #90 tab 12/10/21 [Rx Last Taken Unknown] Allergy/AdvReac Type Severity Reaction Status Date / Time No Known Allergies Allergy Verified 02/22/22 16:42 Family History Brother Prostate cancer Mother Lung cancer Father Colon cancer Daughter Thyroid cancer Surgical History History of esophagogastroduodenoscopy (EGD) (~03/2020) History of facial surgery History of right cataract surgery History of total right hip replacement Social History Smoking Status: Never smoker second hand exposure: No alcohol intake: never substance use type: does not use what type of physical activity do you participate in: walking and weight training frequency: 1-2 times per week krzysztof/jehovah's witness: [employer] seatbelt use: always do you feel safe at home: Yes ROS ROS ED ROS Narrative Denies recent illness. Review of Systems ROS Unobtainable: Denies due to encephalopathy Constitutional Constitutional ED: Denies fever(s) Eyes Eyes: Denies change in vision ENT ENT ED: Denies ear pain Cardiovascular Cardiovascular: Denies chest pain Respiratory/Chest Respiratory/Chest: Denies cough or dyspnea Gastrointestinal Gastrointestinal: Denies abdominal pain, nausea or vomiting Genitourinary Genitourinary ED: Denies dysuria or hematuria Musculoskeletal Musculoskeletal: Denies myalgias Integumentary Denies abscess or rash Neurologic Neurologic: Denies headache(s) Psychiatric Psychiatric: Denies depression Endocrine Endocrinology: Denies polyuria Hematologic/Lymphatic Hematologic/Lymphatic: Denies easy bruising Allergic/Immunologic Allergic/Immunologic ED: Denies urticaria EXAM Physical Exam Narrative Exam Narrative: Sensitive male no acute distress vital signs stable afebrile. H EENT exam unremarkable atraumatic. C-spine nontender. Trachea midline. Lungs are clear. Heart regular rate and rhythm rate about 70 no murmur. Chest wall nontender. Abdomen soft nontender. Back and spine nontender. Pelvic girdle intact. Tenderness to his proximal right thigh and medial hip. No gross bony deformity. Right knee lower leg ankle foot nontender normal range of motion. Left lower extremity both upper EXTR are unremarkable. Neurologically is awake and alert with no focal motor deficits. Const Vital Signs: 02/22/22 16:40 Temperature 97.6 F L Temperature Source Temporal Pulse Rate 71 Respiratory Rate 16 Blood Pressure 201/93 H Blood Pressure Mean 129 Pulse Ox 97 Positive well nourished and well developed; Negative for cachectic, contractures or unkempt General Appearance ED: well developed and NAD; Negative for unkempt, cachectic or contractures Nutritional Appearance: Negative for cachectic HEENT Reports moist mucous membranes normocephalic and atraumatic; Negative for trauma or tenderness Neck full ROM and supple Thyroid: tender Chest Wall inspection of chest normal and palpation of chest normal Resp normal respiratory effort, no retractions and clear to auscultation bilaterally Auscultation: Negative for rales, rhonchi or wheezes Cardio regular rate, regular rhythm, S1 normal heart sound, S2 normal heart sound and no murmurs GI non-tender, non-distended and no masses Auscultation: normoactive bowel sounds Palpation: soft; Negative for tender, guarding or rebound tenderness present Back/Spine no CVA tenderness General Back: Negative for CVA tenderness Cervical Spine: Negative for cervical spine tenderness Thoracic Spine / Upper Back: Negative for thoracic spinal tenderness Lumbar Spine / Lower Back: Negative for lumbar spinal tenderness Extremity normal to inspection and full ROM Extremity Narrative: Tenderness right hip proximal thigh. No deformity. Pain with weightbearing. General Extremety ED: Negative for cyanosis or edema General Extremity: Negative for cyanosis or edema Psych mental status grossly normal Appearance: Negative for unkempt Mood & Affect: Negative for anxious Skin no wounds Lesions: no lesions Rashes: no rashes Trauma: Negative for abrasion, laceration or puncture MDM MDM MDM Narrative Medical decision making narrative: Patient fell has a prior right hip prosthesis complaint of right hip and thigh pain. X-rays of the hip, pelvis and femur are being obtained. He does not anything for pain at this time. I did go over the films the patient's family. Pt doing well at 6:20 p.m. Radiography Diagnostic Testing: Clinical Impression(s) from Imaging Studies Femur X-Ray 02/22/22 17:10 IMPRESSION: Total hip arthroplasty, grossly anatomic alignment. Electronically Signed: Jillian Argueta MD at 18:15 EDT , Pelvis X-Ray 02/22/22 17:10 IMPRESSION: No acute osseous injury. Electronically Signed: Jillian Argueta MD at 18:11 EDT , Right hip and pelvis x-ray 1 view shows no acute abnormality. Prosthesis in place. No fracture. No dislocation. Interpreted by me and the radiologist. Right femur x-ray 2 views interpreted myself and radiologist shows no acute fracture. No periprosthetic fracture. No dislocation. Discharge Plan Triage Chief Complaint: Lower Extremity Injury ED Provider: Johan Azevedo Dx/Rx/DC Orders Clinical Impression: Fall, Contusion of hip, right Instructions: ED Contusion, Lower Extremity Prescriptions: No Action pantoprazole 40 mg tablet,delayed release (DR/EC) 40 mg PO QAM Qty: 90 RF: 1 multivitamin 1 EACH tablet 1 tab PO DAILY RF: 0 zinc 50 MG tablet 50 mg PO DAILY RF: 0 ginkgo biloba 120 MG tablet 120 mg PO DAILY RF: 0 coenzyme Q10 100 MG capsule 100 mg PO DAILY RF: 0 zautqahp-sctmmd-apj C-Mn-boron 1 EACH tablet 1 ea PO DAILY RF: 0 omega-3 fatty acids-fish oil 1 EACH capsule 650 mg PO DAILY RF: 0 B complex-vitamin C-folic acid 400 MCG tablet 800 mcg PO DAILY RF: 0 calcium carbonate-vitamin D3 1 EACH tablet 1 tab PO DAILY RF: 0 Polypodium 240 mg PO DAILY RF: 0 Tumeric Curcumin 500 mg PO DAILY RF: 0 Collagen Types 1,2 &3 60 mg PO DAILY RF: 0 Primary Care Provider: Baldemar Dotson Referrals: Baldemar Dotson, [Primary Care Provider] - 1 Week if not improving Activity Restrictions/Additional Instructions: x-rays were ok. Follow up with your Dr if not improving Tylenol for pain Disposition Disposition: Home, Self Care
--- NOTE | 2022-02-22 17:10 | RAD_ITS ---
STUDY: X-RAY - PELVIS REASON FOR EXAM: Male, 76 years old. Fall and pain TECHNIQUE: One view of the pelvis was obtained. COMPARISON: None. FINDINGS: There is a non-specific bowel gas pattern. Normal visualized soft tissue structures. Bowel gas obscures anatomic detail of the bilateral iliac wings, sacroiliac joints and visualized sacrum. Normal visualized bilateral superior and inferior pubic rami. Normal pubic symphysis. Normal ischial tuberosities. There is a total right hip arthroplasty in place that is grossly anatomic in alignment. Normal visualized left femoral head. Normal left acetabulum. Normal left hip joint. RAD/Pelvis 1 or 2 Views IMPRESSION: No acute osseous injury. Electronically Signed: Jillian Argueta MD at 18:11 EDT ,
--- NOTE | 2022-02-22 17:10 | RAD_ITS ---
STUDY: X-RAY - RIGHT FEMUR REASON FOR STUDY: Male, 76 years old. Fall and pain TECHNIQUE: 4 view(s) of the femur. COMPARISON: None. FINDINGS: There is a total hip arthroplasty in place. Alignment is grossly anatomic. No acute fracture is visualized. Normal visualized soft tissue structure. RAD/Femur Min 2 Views IMPRESSION: Total hip arthroplasty, grossly anatomic alignment. Electronically Signed: Jillian Argueta MD at 18:15 EDT ,
--- NOTE | 2022-02-26 15:39 | CM.ED ---
ER RNCANDACE DC F/u Call: ED Visit 02/22/22 for fall with Rt hip/thigh pain. Called patient's listed dee number and answered by patient Savana whom provided patient with phone. This conventional underwriter introduced self and role. Patient sitting on porch, states has been doing well and has advanced from crutches to cane and now some independently with small steps. Still taking Aleve or Tylenol but has improved. Some pain with certain movement/position but is being careful. No further issues or concerns voiced at this time. Camilla Hamilton RNCM
== END 2022-02-22 18:45 | disposition home or self-care (01) ==
PROVIDERS: Emergency Provider Emergency Medicine; PCP Family Medicine; Visit Provider Emergency Medicine
DX: S70.01XA Contusion of right hip, initial encounter (principal); W19.XXXA Unspecified fall, initial encounter; Y92.007 Garden or yard of unspecified non-institutional (private) residence as the place of occurrence of the external cause; M79.651 Pain in right thigh; Z96.641 Presence of right artificial hip joint
CPT/HCPCS: 72170; 73552; 99283

== ENCOUNTER → 2022-04-16 | Outpatient (CLI) | payer MEDICARE, OTHER, SELFPAY ==
[2022-04-16 10:12] LABS: Vitamin D,25 Hydroxy 33.7 ng/mL
[2022-04-16 10:33] LABS: Cholesterol 161 mg/dL (200); High Density Lipoprotein 43 mg/dL; Triglycerides 71 mg/dL; Very Low Density Lipoprotein 14 mg/dL (5-40)
== END | disposition home or self-care (01) ==
LOC: LAB 08:59
PROVIDERS: PCP Family Medicine; Referring Provider Family Medicine; Visit Provider Family Medicine
DX: E78.5 Hyperlipidemia, unspecified (principal); E55.9 Vitamin D deficiency, unspecified
CPT/HCPCS: 36415; 80061; 82306

== ENCOUNTER → 2023-01-20 | Outpatient (CLI) | payer MEDICARE, OTHER, SELFPAY ==
--- NOTE | 2023-01-20 17:56 | MRI_ITS ---
STUDY: MRI LUMBAR SPINE WITHOUT CONTRAST REASON FOR EXAM: Male, 77 years old. low back pain x 2wks TECHNIQUE: Standardized fat and water weighted pulse sequences were obtained in the sagittal and axial planes. COMPARISON: Lumbar spine x-rays January 16, 2023. FINDINGS: T12-L1: Normal endplates. Normal disc height, hydration and morphology. Normal bilateral facet joints. Normal central canal and bilateral lateral recesses. Normal bilateral intervertebral neural foramina. Normal lumbar lordosis. There is no substantial scoliosis. Visualized distal cord shows normal signal and contour with no intramedullary mass or myelopathy. Conus terminates normally at the L2 vertebral body level. More peripheral nerve roots are without clumping or tethering. L1-2: Disc desiccation and height loss with broad-based posterior disc herniation slightly flattening the anterior thecal sac. There is facet hypertrophy bilaterally further narrowing the central spinal canal; mild central spinal canal narrowing. No nerve root impingement. There is mild bilateral neural foraminal narrowing from facet hypertrophy. No significant nerve root impingement. L2-3: Significant disc desiccation and height loss and moderate, broad-based posterior disc herniation. The disc herniation as well as ligamentum flavum thickening and facet hypertrophy together results in at least moderate central spinal canal stenosis with near complete effacement of CSF signal within the triangular shaped thecal sac. There is left greater than right impingement on the descending nerve roots and left greater than right bilateral neural foraminal narrowing, [id number]. L3-4: Large broad-based posterior disc herniation and significant ligamentum flavum thickening and facet hypertrophy result in significant central spinal canal stenosis with complete effacement of CSF signal within the triangular-shaped thecal sac. There is bilateral nerve root impingement of the descending nerve roots. There is mild bilateral nerve root impingement of the exiting nerve roots bilaterally. L4-5: Broad-based posterior disc herniation flattens anterior thecal sac. Additional aspect of the thecal sac from the mentum flavum thickening and mild facet hypertrophy. There is mild impingement descending nerve roots and moderate impingement of the exiting right nerve root. Mild impingement exiting left nerve root. L5-S1: Disc desiccation and height loss with minimal mass effect on the thecal sac and no nerve root impingement. No significant neural foraminal narrowing. Multilevel degenerative endplate changes with small endplate herniations. Superior endplate of L2 shows a larger endplate herniation and slight height loss of the anterior portion of the vertebrae. There is small amount of increased T2 and decreased FLAIR signal in the T2 vertebrae suggesting possible subacute slight wedge compression fracture. Sagittal STIR images show no evidence of ligamentous injury. Normal visualized paraspinous soft tissue structures. MRI/Spine Lumbar (Routine) IMPRESSION: Multifocal broad-based posterior disc herniations as well as ligamentum flavum thickening and facet hypertrophy together results in multilevel central spinal canal stenosis and impingement of descending and exiting nerve roots at L2-3, L3-4 and L4-5, most severe at L3-4 and L2-3 levels. Mild anterior vertebral body height loss of L2 vertebral body at least partially due to superior endplate herniation pit. There is increased T2 and decreased T1 signal which is suspicious for subacute fracture. Appearance is not able to completely exclude less likely degenerative endplate signal changes. Electronically Signed: Jean Pierre Bear DO at 20:12 EDT ,
== END | disposition home or self-care (01) ==
PROVIDERS: PCP Family Medicine; Referring Provider Orthopaedic Surgery; Visit Provider Orthopaedic Surgery
DX: S32.020A Wedge compression fracture of second lumbar vertebra, initial encounter for closed fracture (principal); X58.XXXA Exposure to other specified factors, initial encounter
CPT/HCPCS: 72148

== ENCOUNTER 2023-02-12 09:49 | Outpatient (RCR) | payer MEDICARE, OTHER, SELFPAY ==
--- NOTE | 2023-02-12 13:09 | HP.PTEVAL_ITS ---
Patient's Visit Information LARISA GE is a 77 year old M referred to Physical Therapy by Dr. Lorenzo Alanis DO with a diagnosis of sprain of lumbosacral region. Date of Evaluation: 02/12/23 Physical Therapist: Abraham Pennington DPT - Visit Plan Frequency: 1x/Week Duration: 3 Weeks Plan: Pt. is doing very well. His pain is almost fully abolished. I sent him home with light core activation exercises to complete daily. Pt. consents. He is to do this at home for the next few weeks. Pt. is to call back if symptoms are to increase. If I do not hear from him in that time frame I will DC back to physician. - Subjective Pt. is here today for his initial evaluation with diagnosis of sprain of lumbosacral region. Pt. reports having increased pain for ~ 1 month, but is now doing much better. He reports having 0.5/10 today. Pt. reports that his symptoms started after lifting some heavier bags of cement. He was having most of his pain in the R side of his lower lumbar spine. This has mostly resolved. He has some morning stiffness, but alleviates with in a few minutes of getting up in the morning. He also just got back from a trip to [place] where he drove down and back. No issues with this. Pt. is pleased with recent reduction in symptoms. 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 Pt. is hopeful to keep pain reduced and get back to all previous activities. - Pain Lumbar spine Pain Intensity (Out of 10): 1 Pain Intensity Range: 1, 3 Comment: 0.5/10 currently on R side of lumbar spine - Objective POSTURE: Pt. has decent posture in stance. Pt. has normal lumbar lordosis. PALPATION: Pt. has mild tenderness at R lateral aspect, but minimally. No. NEURO: Pt. has normal sensation in BLEs, Pt. is able to rise on heels and toes without issues. Pt. has normal DTR of BLEs. ROM: LUMBAR SPINE: flexion min loss NE, ext min loss NE, SB min loss bilat NE, rotation nil loss bilat NE. Pt has tight HS, but not too bad. MMT: 5/5 throughout BLEs, fair core strength. GAIT: Pt. has normal gait pattern. Pt. has normal arm swing, no guarded movement noted. STAIRS: normal without use of UEs. - Special Tests L/S Slump test left side: Negative L/S Slump test right side: Negative L/S Left Straight Leg Raise: Negative L/S Right Straight Leg Raise: Negative Lumbar Standing: Flexion - Mechanical Response: No effect Lumbar Standing: Flexion - Symptoms During Testing: No effect Lumbar Standing: Flexion - Symptoms After Testing: No effect Lumbar Standing: Extension - Mechanical Response: No effect Lumbar Standing: Extension - Symptoms During Testing: No effect Lumbar Standing: Extension - Symptoms After Testing: No effect Lumbar Standing: Right Side Glides - Mechanical Response: No effect Lumbar Standing: Right Side [place] - Symptoms During Testing: No effect Lumbar Standing: Right Side [place] - Symptoms After Testing: No effect Lumbar Standing: Left Side [place] - Mechanical Response: No effect Lumbar Standing: Left Side [place] - Symptoms During Testing: No effect Lumbar Standing: Left Side [place] - Symptoms After Testing: No effect - Balance/Special Test Scores Oswestry Low Back Score: 0 - Goals Goal 1:: LTG: Pt. to be able to complete all daily activities with 0-1/10 pain in lumbar spine. Goal 2:: LTG: Pt. have 0-1/10 pain in lumbar spine for 2 weeks. - Rehabilitation Potential Physical Therapy Diagnosis: Pt. has signs and symptoms consistent with sprain of lumbosacral region. Pt. is overall doing very well. He at this point in time does not need PT. I will leave the case open for a few weeks, just in case his symptoms worsen. Rehabilitation Potential: Excellent - Anticipated Interventions Patient/Client Instruction: Educate patient on: Condition, Plan of Care, Risk Factors, Benefits of Fitness Program For the Purpose of:: To facilitate caregiver knowledge, To improve self management, To prevent re-injury, To improve ability to perform tasks related to life management, To improve tolerance to ADL's Therapeutic Exercise to Include: Power training, Postural training, Flexibilty training, Active ROM, Dynamic Lumbar Stabilization, Elvis Exercises For the Purpose of:: To decrease pain, To increase ROM, To improve nutrient delivery to tissue Thank you for the opportunity to evaluate your patient. For Medicare and Medicare HMO plans, please review the plan of care and approve it. It will need to be FAXED BACK to us at [phone] for Medicare purposes. For Medicare only, by signing this I certify the plan of care. Please let me know if there are questions or concerns regarding this plan of care. Physician Signature: Date:
== END 2023-02-12 19:00 | disposition home or self-care (01) ==
LOC: PT 09:49
PROVIDERS: PCP Family Medicine; Referring Provider Orthopaedic Surgery; Visit Provider Orthopaedic Surgery
DX: S33.9XXD Sprain of unspecified parts of lumbar spine and pelvis, subsequent encounter (principal)
CPT/HCPCS: 97110; 97161

== ENCOUNTER → 2024-04-08 | Outpatient (CLI) | payer MEDICARE, OTHER, SELFPAY ==
[2024-04-08 11:38] LABS: Absolute Neutrophil Count 2.5 X10^3/uL (2.0-7.7); Basophil# 0.02 X10^3/uL; Basophil% 0.5 % (0-1); Eosinophil# 0.06 X10^3/uL; Eosinophils% 1.4 % (0-5); Hematocrit 38.7 % (40-54); Hemoglobin 12.2 g/dL (13.0-16.5); Lymphocyte % 31.7 % (19-41); Mean Corp Hgb Conc 31.5 g/dL (32-36); Mean Corpuscular Hgb 28.1 pg (27.0-32.0); Mean Corpuscular Volume 89.2 fL (80-94); Mean Platelet Vol. 9.8 fl (6.2-12.0); Monocyte# 0.47 X10^3/uL; Monocyte% 10.7 % (0-10); NRBC Flagged by Analyzer 0 % (0-5); Neutrophil # 2.45 X10^3/uL (2.7-7.7); Neutrophil % 55.5 % (47-70); Platelet Count 156 K/mm3 (150-450); RBC Distribution Width CV 12.4 % (11.6-14.6); RBC Distribution Width SD 41.1 fl (35.1-43.9); Red Blood Count 4.34 M/mm3 (4.6-6.2); White Blood Count 4.4 K/mm3 (4.4-11.0)
[2024-04-08 12:04] LABS: Vitamin D,25 Hydroxy 34.6 ng/mL
[2024-04-08 13:53] LABS: ALB/GLOB Ratio 0.5 RATIO (0.9-2.4); AST(SGOT) 13 U/L (15-37); Alanine Aminotransfer ALT/SGPT 10 U/L (16-61); Albumin, Serum 3.4 g/dL (3.2-5.0); Alkaline Phosphatase 80 U/L (45-117); Anion Gap 0 (5-15); BUN 27 mg/dL (7-18); BUN/Creat Ratio 21.4 RATIO (10-20); Calcium,Total 9.2 mg/dL (8.5-10.1); Chloride 104 mmol/L (98-107); Cholesterol < 200 mg/dL (200); Creatinine, Serum 1.26 mg/dL (0.70-1.30); EST Glomerular Filtration Rate 59 mL/min (>60); Est Glom Filt Rate - Afr Amer 71 mL/min (>60); Globulin 6.6 g/dL (2.2-4.2); Glucose 104 mg/dL (74-106); High Density Lipoprotein 42 mg/dL; LDH 94 U/L (87-241); PSA,Total - Annual Screen 0.89 ng/mL (0.00-4.00); Sodium Level 133 mmol/L (136-145); Triglycerides 70 mg/dL; Very Low Density Lipoprotein 14 mg/dL (5-40)
[2024-04-08 19:33] LABS: Xtra Tube EP Lab EXTRA TUBE
[2024-04-12 17:09] LABS: Albumin 3.6 g/dL (2.9-4.4); Alpha-1-Globulins 0.2 g/dL (0.0-0.4); Alpha-2-Globulins 0.7 g/dL (0.4-1.0); Gamma Globulin 4.2 g/dL (0.4-1.8); Immunoglobulin A 23 mg/dL (61-437); Immunoglobulin G 578 mg/dL (603-1613); Immunoglobulin M 5274 mg/dL (15-143); PROEL- TOTAL PROTEIN 9.7 g/dL (6.0-8.5); Viscosity, Serum 3.4 rel.saline (1.4-2.1)
== END | disposition home or self-care (01) ==
LOC: PAVLAB 11:02
PROVIDERS: Internal Medicine Hematology & Oncology; PCP Family Medicine; Referring Provider Family Medicine; Visit Provider Family Medicine
DX: Z12.5 Encounter for screening for malignant neoplasm of prostate (principal); E78.5 Hyperlipidemia, unspecified; M85.80 Other specified disorders of bone density and structure, unspecified site
CPT/HCPCS: 36415; 80053; 80061; 82306; 82784; 83615; 84153; 84165; 85025; 85810; 86334; G0103

== ENCOUNTER → 2025-05-05 | Outpatient (CLI) | payer MEDICARE, OTHER, SELFPAY ==
[2025-05-05 12:43] LABS: Hematocrit 36.6 % (40-54); Hemoglobin 11.9 g/dL (13.0-16.5); Immature Granulocytes Count 0.010 X10^3/uL (0.0-0.0); Mean Corp Hgb Conc 32.5 g/dL (32-36); Mean Corpuscular Volume 87.6 fL (80-94); Mean Platelet Vol. 9.9 fl (6.2-12.0); NRBC Flagged by Analyzer 0 % (0-5); Platelet Count 144 K/mm3 (150-450); RBC Distribution Width CV 12.7 % (11.6-14.6); RBC Distribution Width SD 41.2 fl (35.1-43.9); Red Blood Count 4.18 M/mm3 (4.6-6.2); White Blood Count 5.2 K/mm3 (4.4-11.0)
[2025-05-05 13:18] LABS: AST(SGOT) 18 U/L (<=37); Alanine Aminotransfer ALT/SGPT 8 U/L (<=46); Albumin, Serum 3.8 g/dL (3.4-4.8); Alkaline Phosphatase 75 U/L (40-129); Anion Gap 9 (5-15); BUN 22 mg/dL (4-19); BUN/Creat Ratio 18.2 RATIO (10-20); Calcium,Total 9.6 mg/dL (7.6-11.0); Carbon Dioxide 25.9 mmol/L (21.0-32.0); Chloride 103 mmol/L (98-108); Globulin 6.4 g/dL (2.2-4.2); Glucose 108 mg/dL (70-99); LDH 112 U/L (87-241); Potassium 4.6 mmol/L (3.3-5.1)
[2025-05-05 13:25] LABS: Cholesterol 173 mg/dL (<=200); Low Density Lipoprotein Calc. 100 mg/dL; PSA,Total- Diagnostic 0.81 ng/mL (0.00-4.00); Triglycerides 89 mg/dL; Very Low Density Lipoprotein 18 mg/dL (5-40); cholesterol:hdl ratio screen 3.11
[2025-05-05 20:36] LABS: Xtra Tube EP Lab EXTRA TUBE
[2025-05-10 16:09] LABS: Albumin 3.6 g/dL (2.9-4.4); Gamma Globulin 4.8 g/dL (0.4-1.8); Immunoglobulin A 22 mg/dL (61-437); Immunoglobulin G 534 mg/dL (603-1613); Immunoglobulin M > 5850 mg/dL (15-143); PROEL- TOTAL PROTEIN 10.2 g/dL (6.0-8.5)
== END | disposition home or self-care (01) ==
LOC: LAB.FUTURE 12:00
PROVIDERS: Internal Medicine Hematology & Oncology; PCP Family Medicine; Visit Provider Family Medicine
DX: E78.5 Hyperlipidemia, unspecified (principal); D47.2 Monoclonal gammopathy; Z12.5 Encounter for screening for malignant neoplasm of prostate
CPT/HCPCS: 36415; 80053; 80061; 82784; 83615; 84153; 84165; 85025; 86334